=== PATIENT | female | born 1935 | race Caucasian/White ===

== ENCOUNTER 2017-04-21 10:26 | Outpatient (CLI) | payer MEDICARE, BC, SELFPAY ==
[2017-04-22 15:09] LABS: PHA INR Fingerstick 1.8 (0.9-1.1)
== END 2017-04-21 11:30 | disposition home or self-care (01) ==
LOC: ACC 10:28
PROVIDERS: Family Provider Internal Medicine; PCP Internal Medicine; Visit Provider Internal Medicine
DX: Z86.718 Personal history of other venous thrombosis and embolism (principal); Z79.01 Long term (current) use of anticoagulants; Z51.81 Encounter for therapeutic drug level monitoring
CPT/HCPCS: 85610

== ENCOUNTER → 2017-05-04 08:56 | Outpatient (CLI) | payer MEDICARE, BC, SELFPAY | PROVIDERS: Family Provider Internal Medicine; PCP Internal Medicine; Visit Provider Internal Medicine | DX: E11.9 Type 2 diabetes mellitus without complications (principal); K21.9 Gastro-esophageal reflux disease without esophagitis; Z71.3 Dietary counseling and surveillance ==

== ENCOUNTER → 2017-05-20 10:57 | Outpatient (CLI) | payer MEDICARE, BC, SELFPAY ==
[2017-05-20 15:12] LABS: PHA INR Fingerstick 1.9 (0.9-1.1)
== END | disposition home or self-care (01) ==
PROVIDERS: PCP Internal Medicine; Visit Provider Internal Medicine
DX: Z79.01 Long term (current) use of anticoagulants (principal); Z51.81 Encounter for therapeutic drug level monitoring
CPT/HCPCS: 85610

== ENCOUNTER 2017-06-09 10:23 | Outpatient (CLI) | payer MEDICARE, BC, SELFPAY ==
[2017-06-09 14:20] LABS: PHA INR Fingerstick 2.1 (0.9-1.1)
== END 2017-06-09 14:38 | disposition home or self-care (01) ==
LOC: ACC 10:24
PROVIDERS: Family Provider Internal Medicine; PCP Internal Medicine; Visit Provider Internal Medicine
DX: Z79.01 Long term (current) use of anticoagulants (principal); Z51.81 Encounter for therapeutic drug level monitoring; Z86.718 Personal history of other venous thrombosis and embolism
CPT/HCPCS: 85610; 99211; G0463

== ENCOUNTER 2017-07-07 10:22 | Outpatient (CLI) | payer MEDICARE, BC, SELFPAY ==
[2017-07-07 11:36] LABS: PHA INR Fingerstick 1.6 (0.9-1.1)
== END 2017-07-07 11:40 | disposition home or self-care (01) ==
PROVIDERS: PCP Internal Medicine; Visit Provider Internal Medicine
DX: Z79.01 Long term (current) use of anticoagulants (principal); Z51.81 Encounter for therapeutic drug level monitoring; Z86.718 Personal history of other venous thrombosis and embolism
CPT/HCPCS: 85610; 99211; G0463

== ENCOUNTER 2017-07-21 10:17 | Outpatient (CLI) | payer MEDICARE, BC, SELFPAY ==
[2017-07-21 14:39] LABS: PHA INR Fingerstick 2.2 (0.9-1.1)
== END 2017-07-21 14:57 | disposition home or self-care (01) ==
LOC: ACC 10:19
PROVIDERS: PCP Internal Medicine; Visit Provider Internal Medicine
DX: Z79.01 Long term (current) use of anticoagulants (principal); Z51.81 Encounter for therapeutic drug level monitoring; Z86.718 Personal history of other venous thrombosis and embolism
CPT/HCPCS: 85610; 99211; G0463

== ENCOUNTER 2017-08-18 10:35 | Outpatient (CLI) | payer MEDICARE, BC, SELFPAY ==
[2017-08-18 14:04] LABS: PHA INR Fingerstick 2.4 (0.9-1.1)
== END 2017-08-18 14:10 | disposition home or self-care (01) ==
LOC: ACC 10:36
PROVIDERS: PCP Internal Medicine; Visit Provider Internal Medicine
DX: Z79.01 Long term (current) use of anticoagulants (principal); Z51.81 Encounter for therapeutic drug level monitoring; Z86.718 Personal history of other venous thrombosis and embolism
CPT/HCPCS: 85610; 99211; G0463

== ENCOUNTER 2017-09-22 10:27 | Outpatient (CLI) | payer MEDICARE, BC, SELFPAY | END 2017-09-23 10:26 | disposition home or self-care (01) | PROVIDERS: PCP Internal Medicine; Visit Provider Internal Medicine | DX: Z79.01 Long term (current) use of anticoagulants (principal); Z51.81 Encounter for therapeutic drug level monitoring; Z86.718 Personal history of other venous thrombosis and embolism | CPT/HCPCS: 85610; 99211; G0463 ==

== ENCOUNTER 2017-10-06 10:36 | Outpatient (CLI) | payer MEDICARE, BC, SELFPAY ==
[2017-10-06 11:05] LABS: PHA INR Fingerstick 2.4 (0.9-1.1)
== END 2017-10-06 11:07 | disposition home or self-care (01) ==
LOC: ACC 10:37
PROVIDERS: PCP Internal Medicine; Visit Provider Internal Medicine
DX: Z79.01 Long term (current) use of anticoagulants (principal); Z86.718 Personal history of other venous thrombosis and embolism
CPT/HCPCS: 85610; 99211; G0463

== ENCOUNTER 2017-10-27 10:27 | Outpatient (CLI) | payer MEDICARE, BC, SELFPAY ==
[2017-10-27 15:35] LABS: PHA INR Fingerstick 2.7 (0.9-1.1)
== END 2017-10-27 15:57 | disposition home or self-care (01) ==
LOC: ACC 10:29
PROVIDERS: PCP Internal Medicine; Visit Provider Internal Medicine
DX: Z79.01 Long term (current) use of anticoagulants (principal); Z51.81 Encounter for therapeutic drug level monitoring; Z86.718 Personal history of other venous thrombosis and embolism
CPT/HCPCS: 85610; 99211; G0463

== ENCOUNTER 2017-12-08 10:29 | Outpatient (CLI) | payer MEDICARE, BC, SELFPAY ==
[2017-12-08 11:28] LABS: PHA INR Fingerstick 2.9 (0.9-1.1)
== END 2017-12-08 11:32 | disposition home or self-care (01) ==
LOC: ACC 10:31
PROVIDERS: PCP Internal Medicine; Visit Provider Internal Medicine
DX: Z86.718 Personal history of other venous thrombosis and embolism
CPT/HCPCS: 85610; 99211; G0463

== ENCOUNTER → 2017-12-31 14:54 | Outpatient (CLI) | payer MEDICARE, BC, SELFPAY ==
--- NOTE | 2017-12-31 | NVE_ITS ---
Venous Exam Indications: 729.5 Pain in limb. IMPRESSIONS 1. There is no evidence of significant Reflux. 2. No evidence of deep or superficial vein thrombosis involving the left lower extremity Left lower extremity venous duplex evaluation. Doppler flow study including spectral analysis, color and brooks scale imaging. Location: Vascular laboratory. Patient status: Outpatient. Tables: Venous flow and imaging: + +-------+ + + Location Overall Flow properties Comments + +-------+ + + Left common femoral Patent Normal phasicity; spontaneous; normal augmentation; compressible + +-------+ + + Left saphenofemoral Patent Compressible junction + +-------+ + + Left profunda femoral Patent Compressible + +-------+ + + Left femoral Patent Normal phasicity; spontaneous; normal augmentation; compressible + +-------+ + + Left greater saphenous Patent Normal phasicity; spontaneous; normal augmentation; compressible + +-------+ + + Left popliteal Patent Normal phasicity; spontaneous; normal augmentation; compressible + +-------+ + + Left posterior tibial Patent Compressible Difficult to image. + +-------+ + + Left peroneal Patent Compressible difficult to image. + +-------+ + + Left gastrocnemius Patent Compressible + +-------+ + + Left soleal Patent Compressible + +-------+ + + (Report amended ) Electronically signed by: Jax Bowen [id number]
== END ==
PROVIDERS: PCP Internal Medicine; Visit Provider Internal Medicine
DX: M79.605 Pain in left leg (principal); M79.89 Other specified soft tissue disorders
CPT/HCPCS: 93971

== ENCOUNTER 2018-01-19 10:27 | Outpatient (CLI) | payer MEDICARE, BC, SELFPAY ==
[2018-01-19 14:16] LABS: PHA INR Fingerstick 1.4 (0.9-1.1)
== END 2018-01-19 14:49 | disposition home or self-care (01) ==
LOC: ACC 10:28
PROVIDERS: Family Provider Internal Medicine; PCP Internal Medicine; Visit Provider Internal Medicine
DX: Z51.81 Encounter for therapeutic drug level monitoring (principal); Z79.01 Long term (current) use of anticoagulants; Z86.718 Personal history of other venous thrombosis and embolism
CPT/HCPCS: 85610; 99211; G0463

== ENCOUNTER 2018-02-02 10:32 | Outpatient (CLI) | payer MEDICARE, BC, SELFPAY ==
[2018-02-02 13:29] LABS: PHA INR Fingerstick 2.2 (0.9-1.1)
== END 2018-02-02 13:44 | disposition home or self-care (01) ==
LOC: ACC 10:33
PROVIDERS: PCP Internal Medicine; Visit Provider Internal Medicine
DX: Z51.81 Encounter for therapeutic drug level monitoring (principal); Z79.01 Long term (current) use of anticoagulants; Z86.718 Personal history of other venous thrombosis and embolism
CPT/HCPCS: 85610; 99211; G0463

== ENCOUNTER → 2018-02-09 15:48 | Outpatient (CLI) | payer MEDICARE, BC, SELFPAY ==
--- NOTE | 2018-02-09 15:53 | XR_ITS ---
XR hip RT 2-3V w/pelvis HISTORY: ITS.REASON: RIGHT HIP AND THIGH PAIN ORDERING PHYSICIAN: Per Yeager PATIENT AGE: 82 years FINDINGS: There is a bipolar prosthesis which is in good alignment. No fracture or dislocation or prosthetic loosening apparent IMPRESSION: Status post right hip replacement with no change from 08/30/2009 and no acute finding
== END ==
PROVIDERS: PCP Internal Medicine; Visit Provider Internal Medicine
DX: M25.551 Pain in right hip (principal); R10.2 Pelvic and perineal pain
CPT/HCPCS: 73502

== ENCOUNTER 2018-03-02 10:29 | Outpatient (CLI) | payer MEDICARE, BC, SELFPAY ==
[2018-03-02 11:10] LABS: PHA INR Fingerstick 2.2 (0.9-1.1)
== END 2018-03-02 12:13 | disposition home or self-care (01) ==
LOC: ACC 10:30
PROVIDERS: PCP Internal Medicine; Visit Provider Internal Medicine
DX: Z79.01 Long term (current) use of anticoagulants (principal); Z86.718 Personal history of other venous thrombosis and embolism
CPT/HCPCS: 85610; 99211; G0463

== ENCOUNTER 2018-03-23 10:00 | Outpatient (RCR) | payer MEDICARE, BC, SELFPAY ==
--- NOTE | 2018-02-21 08:56 | HMH.PTOPEV ---
PT Outpatient Evaluation Rehab PT Outpatient Evaluation Start: 02/21/18 08:47 Freq: Status: Active Protocol: Document 02/21/18 08:47 RODRICK (Rec: 02/21/18 08:56 RODRICK [id number]) Electronically Signed By Dada Story, PT 02/21/18 08:47 Outpatient Therapy Subjective History Subjective History Pt reports insidious onset R hip area pain beginning ~ 3 months ago. Pt reports difficulty ambulating up steps with posterio-lateral R hip pain, and intermittent referred pain into R low back area, and anterior R thigh. Pt reports 'I thought it was my right hip replacement, bu the Xray looked good'. Chief Complaint Pain Weakness Symptom Type Ache Sharp Dull Symptoms Relieved By Rest/Positioning Symptoms Aggravated By Physical Activity Walking Prior Functional Limitations Housework Walking Stairs Current Functional Limitations Housework Standing Walking Stairs Symptom Description Constant but Variable Level of pain today (0-10) 5 Pain scale - at its best (0-10) 3 Pain scale - at its worst (0-10) 8 Lumbopelvic Eval Posture Thoracic Spine Posture Standing Position Neutral Lumbar Spine Posture Standing Position Neutral Assistive device Assistive Devices None / NA Gait Observation General Gait Pattern Observation No Deviations/Normal Antalgic Gait Palapation tenderness right paraspinal tenderness Yes: 1/4 buttock tenderness Yes: 3/4-glut med/glut min Range of Motion Lumbar Spine Active Flexion Range of 0-40 Motion (degrees) Lumbar Spine Active Extension Range of 0-20 Motion (degrees) Left Lumbar Spine Lateral Flexion Active 0-20 Range of Motion (degrees) Right Lumbar Spine Lateral Flexion 0-20 Active Range of Motion (degrees) Lumbar Spine ROM Limitations Pain Manual Muscle Test Bilateral Knee Extension Strength Grade 5 Normal Knee Flexion Strength Grade 5 Normal Hip Flexion Strength Grade 4 Good Hip Abduction Strength Grade 4- Good- Hip Adduction Strength Grade 4- Good- Hip External Rotation Strength Grade 4- Good- Hip Internal Rotation Strength Grade 4- Good- Hi
== END 2018-03-23 10:05 | disposition home or self-care (01) ==
LOC: PT 10:00
PROVIDERS: Visit Provider Internal Medicine
DX: M54.31 Sciatica, right side (principal)
CPT/HCPCS: 97010; 97014; 97035; 97110; 97140; 97163; G0283

== ENCOUNTER 2018-04-20 10:30 | Outpatient (CLI) | payer MEDICARE, BC, SELFPAY ==
[2018-04-20 11:48] LABS: PHA INR Fingerstick 2.5 (0.9-1.1)
== END 2018-04-20 11:50 | disposition home or self-care (01) ==
LOC: ACC 10:33
PROVIDERS: PCP Internal Medicine; Visit Provider Internal Medicine
DX: Z51.81 Encounter for therapeutic drug level monitoring (principal); Z79.01 Long term (current) use of anticoagulants; Z86.718 Personal history of other venous thrombosis and embolism
CPT/HCPCS: 85610; 99211; G0463

== ENCOUNTER → 2018-05-02 10:58 | Outpatient (CLI) | payer MEDICARE, BC, SELFPAY ==
--- NOTE | 2018-05-02 11:02 | XR_ITS ---
XR facial bones min 3V Ordering Physician: Per Yeager Patient Age: 82 years: Female HISTORY: ITS.REASON: S/P FALL THIS AM, PAIN Fall this morning with bruising at the right orbit and right cheek. Facial injury. Multiple injuries.\ TECHNIQUE: 3 views facial bones.: Water's view, Jez AP, lateral view COMPARISON :None prior to today FINDINGS The nasal bone as slight irregular appearance on plain film I understand there is no current trauma to the nose and this mass may merely reflect some variations of anatomy here or old trauma. Correlation required Otherwise facial bones appear intact on the current plain films. The maxillary sinuses are well-developed and clear.The wall of the maxillary sinuses appear intact The visualized frontal ethmoid and sphenoid sinuses appear clear on the studies. \ Orbital rim and floor appear intact. Available views of mandible and maxilla unremarkable dental fillings. Mastoid air cells also noted to be well-developed and clear. IMPRESSION: Facial bones unremarkable & intact. No good evidence of acute fracture. Visualized paranasal sinuses appear well-developed and clear. Note Minor irregularity at the appearance the nasal bone on lateral view noted.-May Reflect old trauma or some variations of anatomy. Correlation required. I'm told the patient has no trauma or pain at the nasal bone.
--- NOTE | 2018-05-02 11:02 | XR_ITS ---
XR cervical spine 5V Ordering Physician: Per Yeager Patient Age: 82 years: Female HISTORY: ITS.REASON: S/P FALL THIS AM, PAIN TECHNIQUE: Five-view cervical spine series COMPARISON :None FINDINGS Cervical spondylosis with Multilevel Degenerative changes throughout the cervical spine. No acute fracture nor subluxation. . Disc space narrowing most notable at C5-C6 & C6/7. Posterior Hypertrophic osteophytic ridging noted at these levels-this spurring yields bilateral foraminal encroachment most evident at these levels. There are also degenerative facet changes bilaterally. Most prominent exuberant facet arthropathy and hypertrophy is seen to the right at C2/3. Minimal facet arthropathy is seen also throughout the right at C3/4. C4/5 C5-C6. . Mild facet arthropathy to the left at C2/3 C5 C6 C6/7 Bilateral apical pleural unremarkable scarring most evident on the right C1-C2 relationships appear normal. No malalignment is C-spine prevertebral soft tissues appear normal. Anterior marginal osteophytes most evident C5 C6 C6/7. IMPRESSION No acute fracture nor subluxation cervical spine. Multilevel degenerative changes C-spine as detailed in body of report Most prominent degenerative disc changes and spondylosis at C5-6-6 C6/7. Posterior hypertrophy/spurring at these levels yields notable bilateral foraminal encroachment. Bilateral facet hypertrophy most evident right at C2/3 .
--- NOTE | 2018-05-02 11:02 | XR_ITS ---
XR shoulder RT min 2V Ordering Physician: Per Yeager Patient Age: 82 years: Female HISTORY: ITS.REASON: S/P FALL THIS AM, PAIN right shoulder TECHNIQUE: 3 views right shoulder. AP internal and external rotation view with Y view shoulder COMPARISON :Previous right shoulder from October 2016. FINDINGS Acute fracture at distal right clavicle-less than 1 cm medial to the right AC joint . The fracture does not appear to involve the AC joint but vertically transverses the distal end of right clavicle. . Just less than 5 mm superior offset of the distal clavicle fragment, relative to the main portion of the clavicle . Glenohumeral joint is intact and unchanged. Humeral head and neck appear intact Very Faint calcification just above the base of the humeral head could reflect some minor calcific tendinopathy. AP view shows slight downward sloping of the acromion lateral to the AC joint. This anatomy. Contribute to impingement symptoms if present. . A apical pleural scarring on right is again noted. Old right third rib fracture yields mild deformity ------IMPRESSION: Acute fracture distal most right right clavicle ( just slight medial to AC joint. ) Other minor chronic observations in body of report. These appear stable since 2017 study
== END ==
PROVIDERS: PCP Internal Medicine; Visit Provider Internal Medicine
DX: M54.2 Cervicalgia (principal); M25.511 Pain in right shoulder; H57.11 Ocular pain, right eye; W19.XXXA Unspecified fall, initial encounter
CPT/HCPCS: 70150; 72050; 73030

== ENCOUNTER → 2018-05-26 12:23 | Outpatient (CLI) | payer MEDICARE, BC, SELFPAY ==
--- NOTE | 2018-05-26 12:29 | XR_ITS ---
XR shoulder RT min 2V HISTORY: ITS.REASON: follow up for clavicle fracture ORDERING PHYSICIAN: John Washington MD PATIENT AGE: 82 years Comparison: 05/02/2018 FINDINGS: A mildly displaced fractures once again noted involving the distal aspect of the clavicle. The fracture line is somewhat less distinct. The distal fracture fragment is displaced superiorly x 6 mm. Hypertrophic changes are present along the inferior aspect of the acromion with subacromial stenosis. Calcification is noted along the humeral head consistent with calcific tendinitis. IMPRESSION: Overall no significant change mildly displaced right distal clavicular fracture with subacromial stenosis and calcific tendinitis
== END ==
PROVIDERS: PCP Internal Medicine; Visit Provider Orthopaedic Surgery
DX: S42.031A Displaced fracture of lateral end of right clavicle, initial encounter for closed fracture (principal)
CPT/HCPCS: 73030

== ENCOUNTER 2018-06-01 10:24 | Outpatient (CLI) | payer MEDICARE, BC, SELFPAY ==
[2018-06-01 13:52] LABS: PHA INR Fingerstick 2.4 (0.9-1.1)
== END 2018-06-01 13:56 | disposition home or self-care (01) ==
LOC: ACC 10:25
PROVIDERS: PCP Internal Medicine; Visit Provider Internal Medicine
DX: Z51.81 Encounter for therapeutic drug level monitoring (principal); Z79.01 Long term (current) use of anticoagulants
CPT/HCPCS: 85610; 99211; G0463

== ENCOUNTER 2018-07-13 10:24 | Outpatient (CLI) | payer MEDICARE, BC, SELFPAY ==
[2018-07-13 11:30] LABS: PHA INR Fingerstick 2.5 (0.9-1.1)
== END 2018-07-13 11:39 | disposition home or self-care (01) ==
LOC: ACC 10:26
PROVIDERS: PCP Internal Medicine; Visit Provider Internal Medicine
DX: Z51.81 Encounter for therapeutic drug level monitoring (principal); Z79.01 Long term (current) use of anticoagulants
CPT/HCPCS: 85610; 99211; G0463

== ENCOUNTER → 2018-08-22 14:53 | Outpatient (CLI) | payer MEDICARE, BC, SELFPAY ==
--- NOTE | 2018-08-22 15:03 | CT_ITS ---
CT head/brain wo/w con HISTORY: Fall with headache, dizziness, vertigo, pain, acoustic neuroma ITS.REASON: FALL AT HOME, DIZZINESS,VERIGO,NECK PAIN ORDERING PHYSICIAN: Per Yeager PATIENT AGE: 82 years COMPARISON: 03/15/2010 TECHNIQUE: Axial images obtained without and with 100 mL Optiray 300 contrast. Brain and bone windows reviewed. All CT scans at the facility use one or more dose reduction, viz: automated exposure control, ma/kV adjustment per patient size (including targeted exams where dose is matched to indication, i.e. head), or iterative reconstruction technique. FINDINGS: No midline shift, mass effect, intracranial hemorrhage, hydrocephalus, or extra-axial fluid collection is evident. There is age-related atrophy with mild periventricular ischemic gliotic change. No enhancing lesions are evident. The cerebellopontine angles, cerebellum, and brainstem have an unremarkable appearance The calvarium has an unremarkable appearance. No mastoid effusion. No sinus air-fluid levels.. IMPRESSION: 1. No acute intracranial findings. 2. Age-related atrophy with chronic periventricular ischemic gliotic changes. 3. No enhancing lesions apparent.
--- NOTE | 2018-08-22 15:03 | CT_ITS ---
CT CERVICAL SPINE WITHOUT CONTRAST CT RECONSTRUCTIONS HISTORY:Neck pain following injury, posterior neck pain ORDERING PHYSICIAN: Per Yeager PATIENT AGE: 82 years COMPARISON: None Technique: All CT scans at the facility use one or more dose reduction, viz: automated exposure control, ma/kV adjustment per patient size (including targeted exams where dose is matched to indication, i.e. head), or iterative reconstruction technique PROCEDURE: Axial spiral CT scanning performed of the cervical spine beginning at the base of the skull and continuing to the upper T-spine. 3-D multiplanar reconstruction with 3-D manipulation of volumetric data set in image rendering was completed by the radiologist and/or technologist with the supervision of the radiologist on independent workstation. FINDINGS: No fracture or malalignment. Multilevel degenerative disc disease with facet and uncovertebral arthropathy. C2-C3: Mild degenerative disc disease. C3-C4: Mild degenerative disc disease. C4-C5: Mild degenerative disc disease with 4 mm anterolisthesis of C4. C5-C6: Moderate to severe degenerative disc disease with endplate osteophytes, canal stenosis, and bilateral foraminal narrowing. C6-C7: Degenerative disc disease with endplate hypertrophic change with canal stenosis and bilateral foraminal narrowing. C7-T1: Mild degenerative disc disease. Biapical scarring is noted. There is some slight asymmetry in the base of the tongue on the left with some bullous of the soft tissues at this region. This is of questionable clinical significance. Heterogeneous density is noted within the thyroid gland. IMPRESSION: 1. No acute fracture. 2. Multilevel cervical spondylosis with canal stenosis at C5-C6 and C6-C7 with bilateral foraminal narrowing 3. Slight fullness in the soft tissues on the left at the base of the tongue. Please correlate with physical exam. Somewhat similar appearance on 03/15/2010
[2018-08-22 15:49] LABS: Blood Urea Nitrogen 16 mg/dL (7-18); Creatinine,Serum 0.87 mg/dL (0.55-1.02); Estimated Glomerular Filt Rate 62 ml/min (>60); GFR (African American) 75 ML/MIN (>60)
== END ==
PROVIDERS: PCP Internal Medicine; Visit Provider Internal Medicine
DX: M54.2 Cervicalgia (principal); R55 Syncope and collapse; R42 Dizziness and giddiness
CPT/HCPCS: 36415; 70470; 72125; 82565; 84520

== ENCOUNTER 2018-08-31 11:40 | Outpatient (CLI) | payer MEDICARE, BC, SELFPAY ==
[2018-08-31 14:39] LABS: PHA INR Fingerstick 2.7 (0.9-1.1)
== END 2018-08-31 14:41 | disposition home or self-care (01) ==
LOC: ACC 11:43
PROVIDERS: PCP Internal Medicine; Visit Provider Internal Medicine
DX: Z51.81 Encounter for therapeutic drug level monitoring (principal); Z79.01 Long term (current) use of anticoagulants
CPT/HCPCS: 85610; 99211; G0463

== ENCOUNTER → 2018-09-02 14:43 | Outpatient (CLI) | payer MEDICARE, BC, SELFPAY ==
--- NOTE | 2018-09-02 14:47 | US_ITS ---
ULTRASOUND THYROID PROCEDURE: Multiple sagittal & transverse ultrasound images of the thyroid. HISTORY: Thyroid nodule seen on recent CT scan COMPARISON: CT neck 08/22/2018 ----- FINDINGS: Right and left lobe are generous in size slightly heterogeneous. With Small isolated near isoechoic nodules seen at both right and left lobe -------- RIGHT LOBE:... 4.4 cm length x 1.5 cm wide x 1.6 cm AP... Nodule A: Ill-defined solid nodule labeled A is seen at the posterior aspect midportion right lobe thyroid. This measures up to 10.8 mm AP x 6.6 mm transverse. Nodule B: Solid nodule along the posterior aspect lower right lobe. Roughly 9 mm length x 6.6 mm x 6.4 mm AP -------- LEFT LOBE::4.3 cm length x 1.7 cm wide x 1.5 cm AP Nodule A: Small 4.8 mm X 3.9 mm solid nodule at the posterior midportion left lobe ------ ISTHMUS:. Appears Normal. Normal thickness measuring 3.7 mm AP ...... IMPRESSION...... Generous size slightly heterogeneous gland bilaterally,. Small solid thyroid nodules bilaterally. Largest nodule at posterior aspect of mid right lobe thyroid right measures approximately 10 mm AP maximally Ongoing Follow-up suggested
== END ==
PROVIDERS: PCP Internal Medicine; Visit Provider Internal Medicine
DX: E04.1 Nontoxic single thyroid nodule (principal)
CPT/HCPCS: 76536

== ENCOUNTER 2018-09-22 11:00 | Outpatient (RCR) | payer MEDICARE, BC, SELFPAY | END 2018-09-22 11:05 | disposition home or self-care (01) | LOC: PT 11:00 | PROVIDERS: Visit Provider Internal Medicine | DX: R42 Dizziness and giddiness (principal) | CPT/HCPCS: 97110; 97112; 97163 ==

== ENCOUNTER 2018-10-12 10:26 | Outpatient (CLI) | payer MEDICARE, BC, SELFPAY ==
[2018-10-12 12:06] LABS: PHA INR Fingerstick 2.8 (0.9-1.1)
== END 2018-10-12 12:10 | disposition home or self-care (01) ==
LOC: ACC 10:27
PROVIDERS: PCP Internal Medicine; Visit Provider Internal Medicine
DX: Z51.81 Encounter for therapeutic drug level monitoring (principal); Z79.01 Long term (current) use of anticoagulants
CPT/HCPCS: 85610; 99211; G0463

== ENCOUNTER 2018-11-23 10:34 | Outpatient (CLI) | payer MEDICARE, BC, SELFPAY ==
[2018-11-23 13:39] LABS: PHA INR Fingerstick 2.5 (0.9-1.1)
== END 2018-11-23 13:44 | disposition home or self-care (01) ==
LOC: ACC 10:36
PROVIDERS: PCP Internal Medicine; Visit Provider Internal Medicine
DX: Z51.81 Encounter for therapeutic drug level monitoring (principal); Z79.01 Long term (current) use of anticoagulants; Z86.718 Personal history of other venous thrombosis and embolism
CPT/HCPCS: 85610; 99211; G0463

== ENCOUNTER → 2018-12-19 10:49 | Outpatient (CLI) | payer MEDICARE, BC, SELFPAY ==
--- NOTE | 2018-12-19 10:54 | FL_ITS ---
PROCEDURE: FL BARIUM SWALLOW MODIFIED CLINICAL INDICATION: DYSPHAGIA COMPARISON: No exams were available for comparison TECHNIQUE: Patient administered varying consistencies of barium contrast, while viewed in lateral position under real-time fluoroscopy with cine recording. FLUOROSCOPY TIME:2 minutes and 27 seconds The study was performed in conjunction with speech pathologist. Please see that report & recommendations. FINDINGS: Patient was given varying consistencies of barium. No vestibular penetration or tracheal aspiration. There was mild read residual. IMPRESSION: Unremarkable modified barium swallow. Please see speech pathologist report and recommendations. Dictated by: Jax Bowen MD 12/22/2018 09:35 Electronically signed by Jax Bowen MD in [place] 12/22/2018 09:35
--- NOTE | 2018-12-19 12:31 | HMH.SLMBS2 ---
Speech & Language Evaluation Speech/Language Mod Barium Swallow Start: 12/19/18 12:27 Freq: once Status: Complete Protocol: Document 12/19/18 12:27 ROXANNE (Rec: 12/19/18 12:31 ROXANNE [id number]) [facility] – [place] Recommendations Diet Dietary Recommendations Regular,Thin Liquids Treatment/Strategies Strategy/Precaution Recommend Sitting Upright (90 deg) Mod Barium Swallow Impressions Summary and Impressions Oral Phase Impression No Impairment (WFL) Oral Phase Summary No impairments noted in oral phase Pharyngeal Phase Impression Minimal Impairment Pharyngeal Phase Summary Minimal impairment noted. Ms. Barragan had vallecular residue after swallow however it was cleared with dry swallow. Speech/Language MBS Assessment/Goals/Plan Assessment Date of Evaluation: 12/19/18 Evaluation Type Initial Certification Assessment/Problems Dysphagia Does Patient Qualify for Service No Qualify/Failure Comment Ms. Barragan was given compensatory strategies to help minimize vallecular residue. Plan Pt/Guardian verbally ack understanding Yes of dx/prognosis/goals G -code Required Yes G-CODES ST Current Status [id number] ST Current Status Modifier CI-At least 1% but less than 20% impaired, limited or restricted ST Goal Status [id number] ST Goal Status Modifier CI-At least 1% but less than 20% impaired, limited or restricted Mod Barium Swallow Setup Exam Setup Radiologist Jax Bowen Level of Consciousness Awake,Alert,Appropriate, Follows Commands Position (degrees) 90 Mod Barium Swallow-Lat View Textures Lateral View Food Presentation Thin Liquid via Cup,Thin Liquid via Straw,Ground Food- Regular,Barium Tablet,Regular Food,Pudding,Mixed Oral Phase Labial Closure No Impairment (WFL) Bolus Formation Pooling L/R No Impairment (WFL) Bolus Formation under Tongue No Impairment (WFL) Bolus Formation Scattered Loss No Impairment (WFL) Mastication Rotary Chew No Impairment (WFL) Mastication Munching No Impairment (WFL) Mastication Lateralization No Impairment (WFL) A/P Lingual Propulsion Spills No Impairment (WFL) Lingual Movement No Impairment (WFL) Residue Clearing No Impairment (WFL) Aspiratio
== END ==
PROVIDERS: PCP Internal Medicine; Visit Provider Internal Medicine
DX: R13.10 Dysphagia, unspecified (principal); R05 Cough
CPT/HCPCS: 70371; 92611

== ENCOUNTER 2019-01-04 10:27 | Outpatient (CLI) | payer MEDICARE, BC, SELFPAY | END 2019-01-04 11:18 | disposition home or self-care (01) | LOC: ACC 10:28 | PROVIDERS: PCP Internal Medicine; Visit Provider Internal Medicine | DX: Z51.81 Encounter for therapeutic drug level monitoring (principal); Z79.01 Long term (current) use of anticoagulants | CPT/HCPCS: 85610; 99211; G0463 ==

== ENCOUNTER 2019-02-01 10:31 | Outpatient (CLI) | payer MEDICARE, BC, SELFPAY | END 2019-02-01 11:16 | disposition home or self-care (01) | LOC: ACC 10:32 | PROVIDERS: PCP Internal Medicine; Visit Provider Internal Medicine | DX: Z51.81 Encounter for therapeutic drug level monitoring (principal); Z79.01 Long term (current) use of anticoagulants | CPT/HCPCS: 85610; 99211; G0463 ==

== ENCOUNTER → 2019-02-15 13:47 | Outpatient (CLI) | payer MEDICARE, BC, SELFPAY ==
--- NOTE | 2019-02-15 13:50 | US_ITS ---
PROCEDURE: US THYROID CLINICAL INDICATION: goiter/cyst on thyroid Follow-up thyroid nodules COMPARISON: THY US thyroid from 09/02/2018 FINDINGS: Right lobe: 4.4 x 1.7 x 1.7 cm. There is heterogeneous echogenicity with vague nodularity. A discrete nodule is not demonstrated. This is similar when compared to the previous exam. Left lobe: 4.7 x 1.6 x 1.7 cm. Heterogeneous echogenicity. 5 mm hypoechoic nodule mid polar region on the left unchanged Isthmus: Unremarkable Additional findings: IMPRESSION: Bilateral large thyroid gland with heterogeneous echogenicity. Overall no significant change. No suspicious nodules evident Dictated by: Jax Bowen MD 02/15/2019 17:28 Electronically signed by Jax Bowen MD in [place] 02/15/2019 17:28
== END ==
PROVIDERS: PCP Internal Medicine; Visit Provider Otolaryngology
DX: E04.9 Nontoxic goiter, unspecified (principal)
CPT/HCPCS: 76536

== ENCOUNTER 2019-02-23 12:56 | Outpatient (CLI) | payer MEDICARE, BC, SELFPAY ==
[2019-02-23 13:54] LABS: PHA INR Fingerstick 2.5 (0.9-1.1)
== END 2019-02-23 13:56 | disposition home or self-care (01) ==
LOC: ACC 12:57
PROVIDERS: PCP Internal Medicine; Visit Provider Internal Medicine
DX: Z51.81 Encounter for therapeutic drug level monitoring (principal); Z79.01 Long term (current) use of anticoagulants
CPT/HCPCS: 85610; 99211; G0463

== ENCOUNTER 2019-04-06 11:02 | Outpatient (CLI) | payer MEDICARE, BC, SELFPAY ==
[2019-04-06 13:53] LABS: PHA INR Fingerstick 2.4 (0.9-1.1)
== END 2019-04-06 14:01 | disposition home or self-care (01) ==
LOC: ACC 11:03
PROVIDERS: PCP Internal Medicine; Visit Provider Internal Medicine
DX: Z51.81 Encounter for therapeutic drug level monitoring (principal); Z79.01 Long term (current) use of anticoagulants
CPT/HCPCS: 85610; 99211; G0463

== ENCOUNTER → 2019-05-15 12:54 | Outpatient (CLI) | payer MEDICARE, BC, SELFPAY ==
--- NOTE | 2019-05-15 12:54 | US_ITS ---
PROCEDURE: US THYROID CLINICAL INDICATION: goiter Follow-up thyroid nodules COMPARISON: US THYROID from 02/15/2019 FINDINGS: Right lobe: 4.3 x 1.4 x 1.5 cm with diffuse heterogeneous echogenicity. There is some nodularity of the thyroid gland but no definite discrete nodule evident in both longitudinal and transverse dimension. Not significantly changed. Left lobe: 4.3 x 1.3 x 1.6 cm with heterogeneous echogenicity. No discrete nodule evident in both planes. Isthmus: Additional findings: IMPRESSION: No change in the mildly enlarged thyroid gland with heterogeneous echogenicity without discrete nodule Dictated by: Jax Bowen MD 05/15/2019 17:21 Electronically signed by Jax Bowen MD in [place] 05/15/2019 17:21
== END ==
PROVIDERS: PCP Internal Medicine; Visit Provider Otolaryngology
DX: E04.9 Nontoxic goiter, unspecified (principal); E06.3 Autoimmune thyroiditis
CPT/HCPCS: 76536

== ENCOUNTER 2019-05-18 10:55 | Outpatient (CLI) | payer MEDICARE, BC, SELFPAY ==
[2019-05-18 15:48] LABS: PHA INR Fingerstick 2.5 (0.9-1.1)
== END 2019-05-18 15:53 | disposition home or self-care (01) ==
LOC: ACC 10:57
PROVIDERS: PCP Internal Medicine; Visit Provider Internal Medicine
DX: Z51.81 Encounter for therapeutic drug level monitoring (principal); Z79.01 Long term (current) use of anticoagulants
CPT/HCPCS: 85610; 99211; G0463

== ENCOUNTER 2019-06-29 13:53 | Outpatient (CLI) | payer MEDICARE, BC, SELFPAY ==
[2019-06-29 15:37] LABS: PHA INR Fingerstick 2.5 (0.9-1.1)
== END 2019-06-29 15:41 | disposition home or self-care (01) ==
PROVIDERS: PCP Internal Medicine; Visit Provider Internal Medicine
DX: Z51.81 Encounter for therapeutic drug level monitoring (principal); Z79.01 Long term (current) use of anticoagulants; Z86.718 Personal history of other venous thrombosis and embolism
CPT/HCPCS: 85610; 99211; G0463

== ENCOUNTER 2019-08-23 10:30 | Outpatient (CLI) | payer MEDICARE, BC, SELFPAY | END 2019-08-23 15:57 | disposition home or self-care (01) | LOC: ACC 10:32 | PROVIDERS: PCP Internal Medicine; Visit Provider Internal Medicine | DX: Z51.81 Encounter for therapeutic drug level monitoring (principal); Z79.01 Long term (current) use of anticoagulants | CPT/HCPCS: 85610; 99211; G0463 ==

== ENCOUNTER 2019-09-13 09:28 | Outpatient (CLI) | payer MEDICARE, BC, SELFPAY ==
[2019-09-13 10:32] LABS: PHA INR Fingerstick 3.3 (0.9-1.1)
== END 2019-09-13 10:34 | disposition home or self-care (01) ==
LOC: ACC 09:30
PROVIDERS: PCP Internal Medicine; Visit Provider Internal Medicine
DX: Z51.81 Encounter for therapeutic drug level monitoring (principal); Z79.01 Long term (current) use of anticoagulants
CPT/HCPCS: 85610; 99211; G0463

== ENCOUNTER 2019-10-06 10:54 | Outpatient (CLI) | payer MEDICARE, BC, SELFPAY ==
[2019-10-06 13:22] LABS: PHA INR Fingerstick 2.4 (0.9-1.1)
== END 2019-10-06 14:00 | disposition home or self-care (01) ==
LOC: ACC 10:56
PROVIDERS: PCP Internal Medicine; Visit Provider Internal Medicine
DX: Z51.81 Encounter for therapeutic drug level monitoring (principal); Z79.01 Long term (current) use of anticoagulants
CPT/HCPCS: 85610; 99211; G0463

== ENCOUNTER → 2019-10-09 09:55 | Outpatient (CLI) | payer MEDICARE, BC, SELFPAY ==
--- NOTE | 2019-10-09 09:59 | CT_ITS ---
PROCEDURE: CT HEAD/BRAIN WO/W CON CLINICAL INDICATION: HEADACHES,H/O HEAD TRAUMA COMPARISON: HEADWW CT head/brain wo/w con from 08/22/2018 TECHNIQUE: IV Contrast: 100ML OPITRAY 320 Axial images obtained. All CT scans at the facility use one or more dose reduction, viz: automated exposure control, ma/kV adjustment per patient size (including targeted exams where dose is matched to indication, i.e. head), or iterative reconstruction technique. FINDINGS: No midline shift, mass effect, intracranial hemorrhage, hydrocephalus, or extra-axial fluid collection is evident. There is generalized atrophy with hypoattenuation of the periventricular white matter consistent with microangiopathic changes. No enhancing lesions are evident. No large aneurysms the calvarium has an unremarkable appearance. Mastoids moderate mucosal thickening involves the right sphenoid sinus posteriorly in the right ethmoid sinuses anteriorly IMPRESSION: No acute intracranial findings. Sinus disease Dictated by: Jax Bowen MD 10/09/2019 13:05 Electronically signed by Jax Bowen MD in [place] 10/09/2019 13:05
== END ==
PROVIDERS: PCP Internal Medicine; Visit Provider Internal Medicine
DX: R51 Headache (principal)
CPT/HCPCS: 70470; Q9967

== ENCOUNTER 2019-11-17 10:55 | Outpatient (CLI) | payer MEDICARE, BC, SELFPAY ==
[2019-11-17 12:00] LABS: PHA INR Fingerstick 2.4 (0.9-1.1)
== END 2019-11-17 12:13 | disposition home or self-care (01) ==
LOC: ACC 10:56
PROVIDERS: PCP Internal Medicine; Visit Provider Internal Medicine
DX: Z51.81 Encounter for therapeutic drug level monitoring (principal); Z79.01 Long term (current) use of anticoagulants
CPT/HCPCS: 85610; 99211; G0463

== ENCOUNTER 2019-12-27 14:09 | Outpatient (CLI) | payer MEDICARE, BC, SELFPAY ==
[2019-12-27 14:46] LABS: PHA INR Fingerstick 3.6 (0.9-1.1)
== END 2019-12-27 14:51 | disposition home or self-care (01) ==
LOC: ACC 14:12
PROVIDERS: PCP Internal Medicine; Visit Provider Internal Medicine
DX: Z51.81 Encounter for therapeutic drug level monitoring (principal); Z79.01 Long term (current) use of anticoagulants
CPT/HCPCS: 85610; 99211; G0463

== ENCOUNTER 2020-01-10 11:01 | Outpatient (CLI) | payer MEDICARE, BC, SELFPAY ==
[2020-01-10 13:47] LABS: PHA INR Fingerstick 2.7 (0.9-1.1)
== END 2020-01-10 13:49 | disposition home or self-care (01) ==
LOC: ACC 11:03
PROVIDERS: PCP Internal Medicine; Visit Provider Internal Medicine
DX: Z51.81 Encounter for therapeutic drug level monitoring (principal); Z79.01 Long term (current) use of anticoagulants
CPT/HCPCS: 85610; 99211; G0463

== ENCOUNTER 2020-02-14 11:11 | Outpatient (CLI) | payer MEDICARE, SELFPAY ==
[2020-02-14 11:44] LABS: PHA INR Fingerstick 2.2 (0.9-1.1)
== END 2020-02-14 11:45 | disposition home or self-care (01) ==
LOC: ACC 11:13
PROVIDERS: PCP Internal Medicine; Visit Provider Internal Medicine
DX: Z51.81 Encounter for therapeutic drug level monitoring (principal); Z79.01 Long term (current) use of anticoagulants
CPT/HCPCS: 85610; 99211; G0463

== ENCOUNTER 2020-03-27 10:16 | Outpatient (CLI) | payer MEDICARE, SELFPAY ==
[2020-03-27 15:28] LABS: PHA INR Fingerstick 2.4 (0.9-1.1)
== END 2020-03-27 15:30 | disposition home or self-care (01) ==
LOC: ACC 10:17
PROVIDERS: PCP Internal Medicine; Visit Provider Internal Medicine
DX: Z51.81 Encounter for therapeutic drug level monitoring (principal); Z79.01 Long term (current) use of anticoagulants
CPT/HCPCS: 85610; 99211; G0463

== ENCOUNTER 2020-05-08 14:02 | Outpatient (CLI) | payer MEDICARE, SELFPAY | END 2020-05-08 16:26 | disposition home or self-care (01) | LOC: ACC 14:04 | PROVIDERS: PCP Internal Medicine; Visit Provider Internal Medicine | DX: Z51.81 Encounter for therapeutic drug level monitoring (principal); Z79.01 Long term (current) use of anticoagulants | CPT/HCPCS: 85610; 99211; G0463 ==

== ENCOUNTER 2020-06-12 10:45 | Outpatient (CLI) | payer MEDICARE, SELFPAY ==
--- NOTE | 2020-06-12 10:55 | XR_ITS ---
PROCEDURE: XR CHEST 2V CLINICAL HISTORY: CHEST PAIN COMPARISON: CR CXR CHEST(2 VIEWS-NOT PORTABLE) from 04/27/2012 CT CTAC CTA-CHEST from 04/30/2012 FINDINGS: The cardiomediastinal silhouette and pulmonary vascularity are within normal limits. There chronic changes present with biapical pleural parenchymal thickening and mild thickening of the right major fissure laterally. Mild degenerative changes thoracic spine with mild kyphosis. No lobar consolidation or collapse. No acute bony abnormalities. IMPRESSION: Chronic changes, no acute finding Dictated by: Jax Bowen MD 06/12/2020 11:15 Jax Bowen MD in [place] 06/12/2020 11:15
--- NOTE | 2020-06-12 11:18 | ECG_ITS ---
APPROVED REPORT Exam: Resting ECG HR:85 bpm ECG Measurements Heart Rate 85 AXES MS 152 P 67 QRSd 98 QRS -47 QT 372 T 44 QTc 442 Conclusion Normal sinus rhythm Left anterior fascicular block Moderate voltage criteria for LVH, may be normal variant Abnormal ECG Electronically signed by : Per Yeager, 06/14/2020 09:01:45
[2020-06-12 14:34] LABS: PHA INR Fingerstick 3.1 (0.9-1.1)
== END 2020-06-12 14:36 | disposition home or self-care (01) ==
LOC: ACC 10:49
PROVIDERS: PCP Internal Medicine; Visit Provider Internal Medicine
DX: R07.9 Chest pain, unspecified (principal); Z79.01 Long term (current) use of anticoagulants; Z51.81 Encounter for therapeutic drug level monitoring
CPT/HCPCS: 71046; 85610; 93005; 99211; G0463

== ENCOUNTER 2020-07-04 12:58 | Outpatient (CLI) | payer MEDICARE, SELFPAY ==
[2020-07-04 15:39] LABS: PHA INR Fingerstick 2.1 (0.9-1.1)
== END 2020-07-04 15:42 | disposition home or self-care (01) ==
LOC: ACC 12:59
PROVIDERS: PCP Internal Medicine; Visit Provider Internal Medicine
DX: Z79.01 Long term (current) use of anticoagulants (principal); Z51.81 Encounter for therapeutic drug level monitoring; Z86.718 Personal history of other venous thrombosis and embolism
CPT/HCPCS: 85610; 99211; G0463

== ENCOUNTER 2020-08-14 12:59 | Outpatient (CLI) | payer MEDICARE, SELFPAY ==
[2020-08-14 16:04] LABS: PHA INR Fingerstick 2.4 (0.9-1.1)
== END 2020-08-14 16:06 | disposition home or self-care (01) ==
PROVIDERS: PCP Internal Medicine; Visit Provider Internal Medicine
DX: Z86.718 Personal history of other venous thrombosis and embolism (principal); Z79.01 Long term (current) use of anticoagulants
CPT/HCPCS: 85610; 99211; G0463

== ENCOUNTER → 2020-09-02 15:22 | Outpatient (CLI) | payer MEDICARE, SELFPAY ==
--- NOTE | 2020-09-02 | US_ITS ---
APPROVED REPORT Exam Type: Ankle to Brachial Index Boot Turner: osito/spencer Indications Claudication: Bilaterally Bruit carotid steosis pre-CEA, Discolored great toes Risk Factors History of PAD: Hypertension Hyperlipidemia Diabetes Pressures/Indices Right Indices Left Indices Brachial 146.00 mmHg Brachial 150.00 mmHg Low Thigh 183.00 mmHg 1.22 Low Thigh 0.00 mmHg 0.00 Calf 156.00 mmHg 1.04 Calf 126.00 mmHg 0.84 Ankle(PT) 140.00 mmHg 0.93 Ankle(PT) 150.00 mmHg 1.00 Ankle(DP) 138.00 mmHg 0.92 Ankle(DP) 139.00 mmHg 0.93 Digit 83.00 mmHg 0.55 Digit 75.00 mmHg 0.50 Findings RT JARRELL=0.93 LT JARRELL=1.0 RT TPI=0.55 LT JARRELL=0.50 Right first digit pressure below normal limits. Left first digit pressure below normal limits. Conclusion RT JARRELL=0.93 LT JARRELL=1.0 RT TPI=0.55 LT JARRELL=0.50 Electronically signed by : Jax Bowen MD 09/02/2020 15:58:30
== END ==
PROVIDERS: PCP Internal Medicine; Visit Provider Internal Medicine
DX: R23.0 Cyanosis (principal); I70.213 Atherosclerosis of native arteries of extremities with intermittent claudication, bilateral legs
CPT/HCPCS: 93923

== ENCOUNTER 2020-09-11 13:48 | Outpatient (CLI) | payer MEDICARE, SELFPAY ==
[2020-09-11 14:33] LABS: PHA INR Fingerstick 1.5 (0.9-1.1)
== END 2020-09-11 14:36 | disposition home or self-care (01) ==
LOC: ACC 13:49
PROVIDERS: PCP Internal Medicine; Visit Provider Internal Medicine
DX: Z51.81 Encounter for therapeutic drug level monitoring (principal); Z79.01 Long term (current) use of anticoagulants; I48.91 Unspecified atrial fibrillation
CPT/HCPCS: 85610; 99211; G0463

== ENCOUNTER 2020-09-25 12:57 | Outpatient (CLI) | payer MEDICARE, SELFPAY | END 2020-09-25 15:09 | disposition home or self-care (01) | LOC: ACC 12:58 | PROVIDERS: PCP Internal Medicine; Visit Provider Internal Medicine | DX: Z51.81 Encounter for therapeutic drug level monitoring (principal); Z79.01 Long term (current) use of anticoagulants | CPT/HCPCS: 85610; 99211; G0463 ==

== ENCOUNTER 2020-10-16 12:55 | Outpatient (CLI) | payer MEDICARE, SELFPAY ==
[2020-10-16 15:48] LABS: PHA INR Fingerstick 1.7 (0.9-1.1)
== END 2020-10-16 16:02 | disposition home or self-care (01) ==
LOC: ACC 12:57
PROVIDERS: PCP Internal Medicine; Visit Provider Internal Medicine
DX: Z51.81 Encounter for therapeutic drug level monitoring (principal); Z79.01 Long term (current) use of anticoagulants; I48.91 Unspecified atrial fibrillation
CPT/HCPCS: 85610; 99211; G0463

== ENCOUNTER 2020-11-01 12:50 | Outpatient (CLI) | payer MEDICARE, SELFPAY ==
[2020-11-01 15:56] LABS: PHA INR Fingerstick 2.7 (0.9-1.1)
== END 2020-11-01 16:26 | disposition home or self-care (01) ==
LOC: ACC 12:52
PROVIDERS: PCP Internal Medicine; Visit Provider Internal Medicine
DX: Z51.81 Encounter for therapeutic drug level monitoring (principal); Z79.01 Long term (current) use of anticoagulants; I48.91 Unspecified atrial fibrillation
CPT/HCPCS: 85610; 99211; G0463

== ENCOUNTER 2020-11-07 15:00 | Outpatient (RCR) | payer MEDICARE, SELFPAY | END 2020-11-07 15:05 | disposition home or self-care (01) | LOC: PT 15:00 | PROVIDERS: PCP Internal Medicine; Visit Provider Internal Medicine | DX: R26.89 Other abnormalities of gait and mobility (principal) | CPT/HCPCS: 97110; 97112; 97163; 97530 ==

== ENCOUNTER 2020-11-15 12:51 | Outpatient (CLI) | payer MEDICARE, SELFPAY ==
[2020-11-15 15:31] LABS: PHA INR Fingerstick 2.6 (0.9-1.1)
== END 2020-11-15 15:35 | disposition home or self-care (01) ==
LOC: ACC 12:53
PROVIDERS: PCP Internal Medicine; Visit Provider Internal Medicine
DX: Z51.81 Encounter for therapeutic drug level monitoring (principal); Z79.01 Long term (current) use of anticoagulants; I48.91 Unspecified atrial fibrillation
CPT/HCPCS: 85610; 99211; G0463

== ENCOUNTER → 2020-11-20 14:29 | Outpatient (CLI) | payer MEDICARE, SELFPAY ==
--- NOTE | 2020-11-20 14:34 | XR_ITS ---
PROCEDURE: XR KNEE LT 3V CLINICAL INDICATION: LT KNEE PAIN, S/P FALL 2 MONTHS AGO COMPARISON: CR [id number] KNEE-3 VIEWS-RT from 11/27/2013 FINDINGS: No fracture or dislocation. No lytic or blastic change. There is normal mineralization. There are [id number] osteoarthritic changes of the medial compartment of the left knee with decrease in joint space, osteosclerosis, and osteophyte formation. There are mild osteoarthritic changes of the patellofemoral joint. IMPRESSION: Osteoarthritis, no acute finding Dictated by: Jax Bowen MD 11/20/2020 14:45 Jax Bowen MD in [place] 11/20/2020 14:45
== END ==
PROVIDERS: PCP Internal Medicine; Visit Provider Internal Medicine
DX: M25.562 Pain in left knee (principal)
CPT/HCPCS: 73562

== ENCOUNTER 2020-12-27 08:48 | Outpatient (CLI) | payer MEDICARE, SELFPAY ==
--- NOTE | 2020-12-27 08:51 | CT_ITS ---
PROCEDURE: CT ABDOMEN PELVIS WO CON CLINICAL INDICATION: ABD PAIN COMPARISON: No exams were available for comparison TECHNIQUE: Axial images obtained with sagittal and coronal reformats. All CT scans at the facility use one or more dose reduction, viz: automated exposure control, ma/kV adjustment per patient size (including targeted exams where dose is matched to indication, i.e. head), or iterative reconstruction technique. FINDINGS: LOWER THORAX: A 6 mm nodule is present in the right lung base. This is nonspecific. Aortic valve calcifications are noted. ABDOMEN & PELVIS: The liver, spleen, adrenal glands, pancreas and pancreas has an unremarkable appearance. There are 2 right renal cysts largest of which measures 4.6 cm. There is a 1.2 cm left renal cyst. There is a 2 mm stone in the upper pole of the right kidney and a 2 mm stone in the lower pole of the right kidney. No ureteral calculi. No hydronephrosis. No intestinal obstruction or free air. No evidence of appendicitis. There is a mild amount of retained colonic feces. There is colonic diverticulosis without evidence of diverticulitis. There has been a right hip hemiarthroplasty placed with good alignment. Degenerative changes are present in the lumbar spine. IMPRESSION: 1. Nonobstructing right nephrolithiasis. 2. Colonic diverticulosis without evidence of diverticulitis. 3. 6 mm noncalcified nodule right lower lobe. Suggest 6-12 month follow-up to confirm stability Dictated by: Jax Bowen MD 12/27/2020 14:26 Jax Bowen MD in [place] 12/27/2020 14:26
[2020-12-27 16:34] LABS: PHA INR Fingerstick 2.3 (0.9-1.1)
== END 2020-12-27 16:36 | disposition home or self-care (01) ==
PROVIDERS: PCP Internal Medicine; Visit Provider Internal Medicine
DX: R10.84 Generalized abdominal pain (principal); Z51.81 Encounter for therapeutic drug level monitoring; Z79.01 Long term (current) use of anticoagulants
CPT/HCPCS: 74176; 85610; 99211; G0463

== ENCOUNTER 2021-02-04 14:02 | Outpatient (CLI) | payer MEDICARE, SELFPAY ==
[2021-02-04 15:44] LABS: PHA INR Fingerstick 2.6 (0.9-1.1)
== END 2021-02-04 15:59 | disposition home or self-care (01) ==
LOC: ACC 14:04
PROVIDERS: PCP Internal Medicine; Visit Provider Internal Medicine
DX: Z51.81 Encounter for therapeutic drug level monitoring (principal); Z79.01 Long term (current) use of anticoagulants
CPT/HCPCS: 85610; 99211; G0463

== ENCOUNTER 2021-03-19 13:58 | Outpatient (CLI) | payer MEDICARE, SELFPAY ==
[2021-03-19 14:52] LABS: PHA INR Fingerstick 2.2 (0.9-1.1)
== END 2021-03-19 14:58 | disposition home or self-care (01) ==
LOC: ACC 13:59
PROVIDERS: PCP Internal Medicine; Visit Provider Internal Medicine
DX: Z51.81 Encounter for therapeutic drug level monitoring (principal); Z79.01 Long term (current) use of anticoagulants; I48.91 Unspecified atrial fibrillation
CPT/HCPCS: 85610; 99211; G0463

== ENCOUNTER → 2021-04-15 15:58 | Outpatient (CLI) | payer MEDICARE, SELFPAY | PROVIDERS: PCP Internal Medicine; Visit Provider Nurse Practitioner | DX: Z20.822 Contact with and (suspected) exposure to COVID-19 (principal) | CPT/HCPCS: C9803; U0003; U0005 ==

== ENCOUNTER 2021-04-29 14:07 | Outpatient (CLI) | payer MEDICARE, SELFPAY ==
[2021-04-29 14:27] LABS: PHA INR Fingerstick 2.2 (0.9-1.1)
== END 2021-04-29 14:29 | disposition home or self-care (01) ==
LOC: ACC 14:09
PROVIDERS: PCP Internal Medicine; Visit Provider Internal Medicine
DX: Z51.81 Encounter for therapeutic drug level monitoring (principal); Z79.01 Long term (current) use of anticoagulants; I48.91 Unspecified atrial fibrillation
CPT/HCPCS: 85610; 99211; G0463

== ENCOUNTER 2021-06-12 13:18 | Outpatient (CLI) | payer MEDICARE, SELFPAY | END 2021-06-12 14:41 | disposition home or self-care (01) | LOC: ACC 13:19 | PROVIDERS: PCP Internal Medicine; Visit Provider Internal Medicine | DX: Z51.81 Encounter for therapeutic drug level monitoring (principal); Z79.01 Long term (current) use of anticoagulants; I48.91 Unspecified atrial fibrillation | CPT/HCPCS: 85610; 99211; G0463 ==

== ENCOUNTER → 2021-07-02 13:32 | Outpatient (CLI) | payer MEDICARE, SELFPAY ==
[2021-07-02 15:40] LABS: Alanine Aminotransferase 25 U/L (12-78); Albumin Level 3.9 g/dl (3.5-5.0); Albumin/Globulin Ratio 1.6 (1.1-1.8); Alkaline Phosphatase 96 U/L (38-126); Anion Gap 13.6 mEq/L (5-15); Aspartate Amino Transferase 29 U/L (14-36); Bilirubin,Total 0.5 mg/dl (0.2-1.3); Blood Urea Nitrogen 20 mg/dl (7-17); Calcium 8.9 mg/dl (8.4-10.2); Carbon Dioxide 28 mmol/L (22.0-30.0); Chloride 98 mmol/L (98-107); Chol/HDL Ratio 4.8 (1-3.5); Cholesterol 167 mg/dl (140-200); Estimated Glomerular Filt Rate 68 ml/min (>60); GFR (African American) 82 ML/MIN (>60); Globulin 2.5 g/dL (1.3-3.2); Glucose 105 mg/dl (74-100); HDL Cholesterol 35 mg/dl (40-60); Potassium 4.6 mmoL/L (3.5-5.1); Sodium 135 mmol/L (136-145); Total Protein,Serum 6.4 g/dl (6.3-8.2); Triglycerides 210 mg/dl (30-150); VLDL Cholesterol 42 mg/dL (0-40)
[2021-07-02 15:51] LABS: Direct LDL Cholesterol 87.95 mg/dL (100-129)
[2021-07-02 16:22] LABS: Creatinine,Urine Random 125 mg/dL (Not Estab.)
[2021-07-02 16:26] LABS: Microalbumin/Creatinine Ratio 18.2
[2021-07-02 17:47] LABS: Hemoglobin A1C 6.6 % (4.0-6.0)
== END ==
PROVIDERS: Visit Provider Internal Medicine
DX: E11.59 Type 2 diabetes mellitus with other circulatory complications (principal); I73.9 Peripheral vascular disease, unspecified; I10 Essential (primary) hypertension; E78.5 Hyperlipidemia, unspecified; M17.0 Bilateral primary osteoarthritis of knee; Z79.84 Long term (current) use of oral hypoglycemic drugs
CPT/HCPCS: 80053; 80061; 82043; 82570; 83036

== ENCOUNTER 2021-07-10 15:23 | Emergency (ER) | payer MEDICARE, SELFPAY ==
[2021-07-10 15:02] VITALS: BP 125/87; PULSE 88; RESP 18; TEMP 36.5; O2SAT 99; BMI 34.2
--- NOTE | 2021-07-10 15:17 | XR_ITS ---
FINAL REPORT CLINICAL HISTORY: injury, fall c/o lt knee pain COMPARISON: 11/20/2020 FINDINGS: LEFT KNEE Three views demonstrate no acute fracture or dislocation. There are mild and moderate degenerative changes. No joint effusion is identified. There is infrapatellar soft tissue swelling. IMPRESSION: Soft tissue swelling without acute bony abnormality. Reviewed, Interpreted and Dictated by Lucho Moreno III, MD Transcribed by Swetha Lowe Authenticated by Lucho Moreno III, MD on 07/10/2021 04:41:52 PM [facility]
--- NOTE | 2021-07-10 15:17 | CT_ITS ---
FINAL REPORT CLINICAL HISTORY: fall, laceration too forehead COMPARISON: 08/22/2018 FINDINGS: Axial CT images of the cervical spine were obtained without contrast. Sagittal and coronal reformatted images were also obtained. This study was performed with techniques to keep radiation doses as low as reasonably achievable (ALARA). Individualized dose reduction techniques using automated exposure control or adjustment of mA and/or kV according to the patient's size were employed. There is no evidence of fracture or dislocation. Mild and moderate degenerative changes are present. There is mild anterolisthesis of C4 on 5. There is multilevel neural foraminal narrowing. There is mild central canal stenosis at C5-6 and C6-7. There is soft tissue in the right sphenoid sinus. Limited images of the upper thorax are unremarkable. IMPRESSION: No acute bony abnormality. Multilevel degenerative disc disease with multilevel neural foraminal narrowing. Reviewed, Interpreted and Dictated by Lucho Moreno III, MD Transcribed by Swetha Lowe Authenticated by Lucho Moreno III, MD on 07/10/2021 04:41:55 PM [facility]
--- NOTE | 2021-07-10 15:17 | CT_ITS ---
FINAL REPORT CLINICAL HISTORY: fall, trauma, laceration to forehead COMPARISON: 10/09/2019 FINDINGS: Axial images of the head were obtained without contrast. Coronal reformatted images were also obtained. This study was performed with techniques to keep radiation doses as low as reasonably achievable (ALARA). Individualized dose reduction techniques using automated exposure control or adjustment of mA and/or kV according to the patient's size were employed. There is generalized age-appropriate atrophy. Periventricular low-attenuation areas are seen consistent with mild chronic ischemic changes. There is no evidence of intracranial hemorrhage or mass. There is no evidence of acute infarct. There is no evidence of shift of the midline structures. There is a right frontal scalp hematoma. IMPRESSION: Atrophy and mild periventricular chronic ischemic changes. No acute intracranial abnormality identified. Reviewed, Interpreted and Dictated by Lucho Moreno III, MD Transcribed by Swetha Lowe Authenticated by Lucho Moreno III, MD on 07/10/2021 04:41:54 PM [facility]
--- NOTE | 2021-07-10 15:25 | PC.NURSE ---
ED MD at to suture patient
--- NOTE | 2021-07-10 15:30 | HMH.EDFALL ---
ED Disposition Clinical Impression: Forehead laceration Qualifiers: Encounter type: initial encounter Qualified Code(s): S01.81XA - Laceration without foreign body of other part of head, initial encounter Eyelid laceration, right Qualifiers: Encounter type: initial encounter Qualified Code(s): S01.111A - Laceration without foreign body of right eyelid and periocular area, initial encounter Nasal fracture Qualifiers: Encounter type: initial encounter Fracture type: closed Qualified Code(s): S02.2XXA - Fracture of nasal bones, initial encounter for closed fracture Disposition: Home, Self-Care Condition on Discharge: Good Instructions: DI for Laceration Repair -- Simple Prescriptions: Mupirocin [Bactroban 2% Ointment 22gm tube] 1 applicatio TP TID #22 gm Transmission Status: Pending to [facility] clindamycin HCL [Cleocin HCl] 300 mg PO Q8 #21 cap Transmission Status: Pending to [facility] Referrals: Provider,Referral, [Referring] - - Critical Care Critical Care Time: No Attestation: On 07/10/21, the high probability of a clinically significant, sudden or life threatening deterioration of the following system(s) required my full and direct attention, intervention and personal management. The time I documented below is in addition to time spent performing reported procedures but includes the following listed in this critical care notation. Medical Decision Making - Medical Records Medical records reviewed: Yes: I reviewed the patient's medical records. - [place] Inquiry Pt receiving controlled substance: No Vital Signs: 07/10/21 15:02 07/10/21 15:56 07/10/21 16:01 Temperature 97.7 F Temperature Source Oral Pulse Rate 82 81 Pulse Rate [Left Radial] 88 Respiratory Rate 18 Blood Pressure 176/75 H 165/66 H Blood Pressure [Right Arm] 125/87 Blood Pressure Mean 104 96 Blood Pressure Mean [Right Arm] 99 Blood Pressure Source [Right Arm] Automatic Cuff Blood Pressure Position [Right Arm] Sitting 02 Sat by Pulse Oximetry 99 96 96 Oxygen Delivery Method Room Air 07/10/21 16:31 Temperature Temperature Source Pulse Rate 79 Pulse Rate [Left Radial] Respiratory Rate Blood Pressure 158/76 H Blood Pressure [Right Arm] Blood Pressure Mean 103 Blood Pressure Mean [Right Arm] Blood Pressure Source [Right Arm] Blood Pressure Position [Right Arm] 02 Sat by Pulse Oximetry 98 Oxygen Delivery Method - Lab Data Lab Results 07/10/21 16:10: WBC 8.6, RBC 4.05 L, Hgb 13.0, Hct 40.1, MCV 99.2 H, MCH 32.2 H, MCHC 32.5, RDW 13.9, Plt Count 319, MPV 7.6, Neut % (Auto) 78.4, Lymph % (Auto) 12.6, Swain % (Auto) 6.2, Eos % (Auto) 2.0, Baso % (Auto) 0.7, Neut # (Auto) 6.8, Lymph # (Auto) 1.1, Swain # (Auto) 0.5, Eos # (Auto) 0.2, Baso # (Auto) 0.1 07/10/21 16:10: Sodium 133 L, Potassium 4.0, Chloride 99, Carbon Dioxide 27, Anion Gap 11.0, BUN 19 H, Creatinine 0.70, Estimated Creat Clear 61, Estimated GFR 79, Est GFR ( Amer) 96, Glucose 202 H, Calcium 8.5, Total Bilirubin 0.5, AST 38 H, ALT 30, Alkaline Phosphatase 88, Total Protein 6.4, Albumin 3.8, Globulin 2.6, Albumin/Globulin Ratio 1.5 07/10/21 16:10: PT 21.7 H, INR 2.02 H Result diagrams: 07/10/21 16:10 07/10/21 16:10 - Reevaluation(s) Time: 17:02 (reeval, bleeding controlled, appears well, able to stand and walk with minimal assist, son to ED to care for pt agreed to plan to rx and f/u pcp) Medical Decision Narrative: forehead lac repair by me , irrig w/sailine, no fb seen, lido w/epi, 4-0 nylon running x6 rt upper eyelid lac repair, irrig, approximated with steristrip/dermabond Fall HPI - General Chief Complaint: Fall Stated Complaint: Fall/Head laceration Time Seen by Provider: 07/10/21 15:39 Mode of Arrival: EMS Limitations: No Limitations Description of Symptoms (Recalled from ER Triage Doc. by RN): c/o head laceration and scratch on nose and left knee pain, pt states she
--- NOTE | 2021-07-10 15:41 | CT_ITS ---
FINAL REPORT TECHNIQUE: Axial CT images of the face were obtained without contrast. Coronal reformatted images were also obtained. This study was performed with techniques to keep radiation doses as low as reasonably achievable, (ALARA). Individualized dose reduction techniques using automated exposure control or adjustment of mA and/or kV according to the patient''s size were employed. CLINICAL HISTORY: trauma, fall laceration rt side of forehead FINDINGS: There are bilateral nasal bone fractures. The orbits are intact.The globes are intact.No sinus fluid levels are identified. There is mucosal thickening in the right sphenoid sinus. IMPRESSION: Bilateral nasal bone fractures. Reviewed, Interpreted and Dictated by Lucho Moreno III, MD Transcribed by Swetha Lowe Authenticated by Lucho Moreno III, MD on 07/10/2021 04:41:57 PM [facility]
--- NOTE | 2021-07-10 15:55 | PC.NURSE ---
Patient back from CT with weed eradicator by tru
[2021-07-10 15:56] VITALS: BP 176/75; PULSE 82; O2SAT 96
[2021-07-10 16:01] VITALS: BP 165/66; PULSE 81; O2SAT 96
[2021-07-10 16:24] LABS: Basophils # 0.1 K/mm3 (0-0.2); Basophils % 0.7 % (0.1-2.0); Eosinophils # 0.2 K/mm3 (0.0-0.4); Hematocrit 40.1 % (37.0-47.0); Lymphocytes # 1.1 K/mm3 (0.7-4.5); Lymphocytes % 12.6 % (10-50); Mean Corpuscular HGB Conc 32.5 g/dL (31.8-35.4); Mean Corpuscular Hemoglobin 32.2 pg (27.0-31.2); Mean Corpuscular Volume 99.2 fl (81-99); Mean Platelet Volume 7.6 fl (7.4-10.4); Monocytes # 0.5 K/mm3 (0.1-1.0); Monocytes % 6.2 % (1.7-9.3); Neutrophils # 6.8 K/mm3 (1.8-7.8); Neutrophils % 78.4 % (37.0-80.0); Platelet Count 319 K/mm3 (142-424); Red Blood Count 4.05 M/mm3 (4.20-5.40); Red Cell Distribution Width 13.9 % (11.5-17.5); White Blood Count 8.6 K/mm3 (4.8-10.8)
[2021-07-10 16:31] VITALS: BP 158/76; PULSE 79; O2SAT 98
[2021-07-10 16:37] LABS: Alanine Aminotransferase 30 U/L (12-78); Albumin Level 3.8 g/dl (3.5-5.0); Albumin/Globulin Ratio 1.5 (1.1-1.8); Alkaline Phosphatase 88 U/L (38-126); Aspartate Amino Transferase 38 U/L (14-36); Bilirubin,Total 0.5 mg/dl (0.2-1.3); Blood Urea Nitrogen 19 mg/dl (7-17); Calcium 8.5 mg/dl (8.4-10.2); Carbon Dioxide 27 mmol/L (22.0-30.0); Chloride 99 mmol/L (98-107); Creatinine Clearance Estimated 61 mL/min (50-200); Estimated Glomerular Filt Rate 79 ml/min (>60); GFR (African American) 96 ML/MIN (>60); Globulin 2.6 g/dL (1.3-3.2); Glucose 202 mg/dl (74-100); INR 2.02 (0.9-1.1); Prothrombin Time 21.7 seconds (10.1-12.5); Sodium 133 mmol/L (136-145); Total Protein,Serum 6.4 g/dl (6.3-8.2)
--- NOTE | 2021-07-10 16:38 | PC.NURSE ---
RN and student at cleaning blood off of patient from her fall
[2021-07-10 17:40] VITALS: BP 158/76; PULSE 79; RESP 18; TEMP 36.5; O2SAT 98
== END 2021-07-10 17:42 | disposition home or self-care (01) ==
PROVIDERS: Emergency Provider Emergency Medicine; PCP Internal Medicine
DX: S01.81XA Laceration without foreign body of other part of head, initial encounter (principal); S01.111A Laceration without foreign body of right eyelid and periocular area, initial encounter; S02.2XXA Fracture of nasal bones, initial encounter for closed fracture; Z79.01 Long term (current) use of anticoagulants; W10.9XXA Fall (on) (from) unspecified stairs and steps, initial encounter; Y92.019 Unspecified place in single-family (private) house as the place of occurrence of the external cause; E78.5 Hyperlipidemia, unspecified; E11.9 Type 2 diabetes mellitus without complications; K21.9 Gastro-esophageal reflux disease without esophagitis; F41.9 Anxiety disorder, unspecified
CPT/HCPCS: 70450; 70486; 72125; 73562; 80053; 85025; 85610; 99284

== ENCOUNTER 2021-07-23 13:36 | Outpatient (CLI) | payer MEDICARE, SELFPAY ==
[2021-07-23 14:01] LABS: PHA INR Fingerstick 1.9 (0.9-1.1)
== END 2021-07-23 14:05 | disposition home or self-care (01) ==
LOC: ACC 13:37
PROVIDERS: PCP Internal Medicine; Visit Provider Internal Medicine
DX: Z51.81 Encounter for therapeutic drug level monitoring (principal); Z79.01 Long term (current) use of anticoagulants; I48.91 Unspecified atrial fibrillation
CPT/HCPCS: 85610; 99211; G0463

== ENCOUNTER 2021-08-06 15:01 | Outpatient (CLI) | payer MEDICARE, SELFPAY ==
[2021-08-06 16:33] LABS: PHA INR Fingerstick 2.2 (0.9-1.1)
== END 2021-08-06 16:34 | disposition home or self-care (01) ==
LOC: ACC 15:01
PROVIDERS: PCP Internal Medicine; Visit Provider Internal Medicine
DX: Z51.81 Encounter for therapeutic drug level monitoring (principal); Z79.01 Long term (current) use of anticoagulants; I48.91 Unspecified atrial fibrillation
CPT/HCPCS: 85610; 99211; G0463

== ENCOUNTER → 2021-08-13 16:56 | Outpatient (CLI) | payer MEDICARE, SELFPAY ==
[2021-08-13 17:25] LABS: Basophils # 0.1 K/mm3 (0-0.2); Eosinophils # 0.3 K/mm3 (0.0-0.4); Eosinophils % 3.8 % (0.1-12.0); Hematocrit 40.9 % (37.0-47.0); Hemoglobin 13.6 g/dL (12.2-16.2); Lymphocytes # 1.5 K/mm3 (0.7-4.5); Lymphocytes % 20.1 % (10-50); Mean Corpuscular HGB Conc 33.2 g/dL (31.8-35.4); Mean Corpuscular Hemoglobin 32.8 pg (27.0-31.2); Mean Corpuscular Volume 98.8 fl (81-99); Mean Platelet Volume 8.2 fl (7.4-10.4); Monocytes # 0.6 K/mm3 (0.1-1.0); Monocytes % 7.4 % (1.7-9.3); Neutrophils % 67.6 % (37.0-80.0); Platelet Count 405 K/mm3 (142-424); Red Blood Count 4.14 M/mm3 (4.20-5.40); Red Cell Distribution Width 13.9 % (11.5-17.5); White Blood Count 7.4 K/mm3 (4.8-10.8)
[2021-08-13 19:13] LABS: Erythrocyte Sedimentation Rate 18 mm/hr (0-30)
== END ==
PROVIDERS: Visit Provider Internal Medicine
DX: G44.1 Vascular headache, not elsewhere classified (principal); I10 Essential (primary) hypertension
CPT/HCPCS: 85025; 85651

== ENCOUNTER 2021-09-18 15:26 | Outpatient (CLI) | payer MEDICARE, SELFPAY | END 2021-09-18 15:58 | disposition home or self-care (01) | LOC: ACC 15:27 | PROVIDERS: PCP Internal Medicine; Visit Provider Internal Medicine | DX: Z51.81 Encounter for therapeutic drug level monitoring (principal); Z79.01 Long term (current) use of anticoagulants; I48.91 Unspecified atrial fibrillation | CPT/HCPCS: 85610; 99211; G0463 ==

== ENCOUNTER 2021-10-10 14:58 | Outpatient (CLI) | payer MEDICARE, SELFPAY ==
[2021-10-10 15:37] LABS: PHA INR Fingerstick 2.6 (0.9-1.1)
== END 2021-10-10 15:38 | disposition home or self-care (01) ==
LOC: ACC 14:58
PROVIDERS: PCP Internal Medicine; Visit Provider Internal Medicine
DX: Z51.81 Encounter for therapeutic drug level monitoring (principal); Z79.01 Long term (current) use of anticoagulants; I48.91 Unspecified atrial fibrillation
CPT/HCPCS: 85610; 99211; G0463

== ENCOUNTER 2021-11-07 14:51 | Outpatient (CLI) | payer MEDICARE, SELFPAY ==
[2021-11-07 16:14] LABS: PHA INR Fingerstick 2.5 (0.9-1.1)
== END 2021-11-07 16:21 | disposition home or self-care (01) ==
LOC: ACC 14:52
PROVIDERS: PCP Internal Medicine; Visit Provider Internal Medicine
DX: Z51.81 Encounter for therapeutic drug level monitoring (principal); Z79.01 Long term (current) use of anticoagulants; I48.91 Unspecified atrial fibrillation
CPT/HCPCS: 85610; 99211; G0463

== ENCOUNTER 2021-12-19 14:58 | Outpatient (CLI) | payer MEDICARE, SELFPAY ==
[2021-12-19 15:33] LABS: PHA INR Fingerstick 2.2 (0.9-1.1)
== END 2021-12-19 15:48 ==
LOC: ACC 14:59
PROVIDERS: PCP Internal Medicine; Visit Provider Internal Medicine
DX: Z51.81 Encounter for therapeutic drug level monitoring (principal); Z79.01 Long term (current) use of anticoagulants; I48.91 Unspecified atrial fibrillation
CPT/HCPCS: 85610; 99211; G0463

== ENCOUNTER 2022-02-04 15:03 | Outpatient (CLI) | payer MEDICARE, SELFPAY ==
[2022-02-04 15:39] LABS: PHA INR Fingerstick 2.2 (0.9-1.1)
== END 2022-02-04 15:41 ==
LOC: ACC 15:05
PROVIDERS: PCP Internal Medicine; Visit Provider Internal Medicine
DX: Z79.01 Long term (current) use of anticoagulants (principal)
CPT/HCPCS: 85610; 99211; G0463

== ENCOUNTER → 2022-02-04 18:15 | Outpatient (CLI) | payer MEDICARE, SELFPAY ==
[2022-02-04 18:33] LABS: Basophils # 0.1 K/mm3 (0-0.2); Basophils % 0.8 % (0.1-2.0); Eosinophils # 0.3 K/mm3 (0.0-0.4); Eosinophils % 3.2 % (0.1-12.0); Hematocrit 41.5 % (37.0-47.0); Hemoglobin 13.4 g/dL (12.2-16.2); Lymphocytes # 1.5 K/mm3 (0.7-4.5); Lymphocytes % 17.9 % (10-50); Mean Corpuscular HGB Conc 32.4 g/dL (31.8-35.4); Mean Corpuscular Hemoglobin 31.9 pg (27.0-31.2); Mean Corpuscular Volume 98.5 fl (81-99); Mean Platelet Volume 7.4 fl (7.4-10.4); Monocytes # 0.6 K/mm3 (0.1-1.0); Monocytes % 7.1 % (1.7-9.3); Neutrophils # 6.1 K/mm3 (1.8-7.8); Neutrophils % 71.1 % (37.0-80.0); Platelet Count 410 K/mm3 (142-424); Red Blood Count 4.21 M/mm3 (4.20-5.40); Red Cell Distribution Width 13.7 % (11.5-17.5); White Blood Count 8.6 K/mm3 (4.8-10.8)
[2022-02-04 19:02] LABS: Erythrocyte Sedimentation Rate 17 mm/hr (0-30)
[2022-02-04 19:22] LABS: Alanine Aminotransferase 24 U/L (12-78); Albumin Level 3.7 g/dl (3.5-5.0); Albumin/Globulin Ratio 1.5 (1.1-1.8); Alkaline Phosphatase 116 U/L (38-126); Anion Gap 16.2 mEq/L (5-15); Aspartate Amino Transferase 31 U/L (14-36); Bilirubin,Total 0.4 mg/dl (0.2-1.3); Blood Urea Nitrogen 26 mg/dl (7-17); Calcium 8.8 mg/dl (8.4-10.2); Carbon Dioxide 28 mmol/L (22.0-30.0); Chloride 95 mmol/L (98-107); Chol/HDL Ratio 4.4 (1-3.5); Cholesterol 154 mg/dl (140-200); Estimated Glomerular Filt Rate 59 ml/min (>60); GFR (African American) 72 ML/MIN (>60); Globulin 2.5 g/dL (1.3-3.2); Glucose 109 mg/dl (74-100); HDL Cholesterol 35 mg/dl (40-60); Potassium 4.2 mmoL/L (3.5-5.1); Sodium 135 mmol/L (136-145); Total Protein,Serum 6.2 g/dl (6.3-8.2); Triglycerides 207 mg/dl (30-150); VLDL Cholesterol 41 mg/dL (0-40)
[2022-02-04 20:02] LABS: Hemoglobin A1C 6.2 % (4.0-6.0)
[2022-02-04 21:06] LABS: Direct LDL Cholesterol 91.21 mg/dL (100-129)
== END ==
PROVIDERS: PCP Internal Medicine; Visit Provider Internal Medicine
DX: E11.59 Type 2 diabetes mellitus with other circulatory complications (principal); I10 Essential (primary) hypertension; M17.0 Bilateral primary osteoarthritis of knee; I73.9 Peripheral vascular disease, unspecified; E78.5 Hyperlipidemia, unspecified; G44.1 Vascular headache, not elsewhere classified; Z79.84 Long term (current) use of oral hypoglycemic drugs
CPT/HCPCS: 80053; 80061; 83036; 85025; 85610; 85651; 99211; G0463

== ENCOUNTER 2022-03-20 13:58 | Outpatient (CLI) | payer MEDICARE, SELFPAY ==
[2022-03-20 14:30] LABS: PHA INR Fingerstick 2.2 (0.9-1.1)
== END 2022-03-20 14:35 ==
LOC: ACC 13:59
PROVIDERS: PCP Internal Medicine; Visit Provider Internal Medicine
DX: Z51.81 Encounter for therapeutic drug level monitoring (principal); Z79.01 Long term (current) use of anticoagulants; I48.91 Unspecified atrial fibrillation
CPT/HCPCS: 85610; 99211; G0463

== ENCOUNTER 2022-05-01 13:53 | Outpatient (CLI) | payer MEDICARE, SELFPAY ==
[2022-05-01 15:16] LABS: PHA INR Fingerstick 1.9 (0.9-1.1)
== END 2022-05-01 16:04 ==
LOC: ACC 13:55
PROVIDERS: PCP Internal Medicine; Visit Provider Internal Medicine
DX: Z51.81 Encounter for therapeutic drug level monitoring (principal); Z79.01 Long term (current) use of anticoagulants; I48.91 Unspecified atrial fibrillation
CPT/HCPCS: 85610; 99211; G0463

== ENCOUNTER 2022-06-17 14:03 | Outpatient (CLI) | payer MEDICARE, SELFPAY ==
[2022-06-17 14:21] LABS: PHA INR Fingerstick 2.1 (0.9-1.1)
== END 2022-06-17 14:23 ==
LOC: ACC 14:05
PROVIDERS: PCP Internal Medicine; Visit Provider Internal Medicine
DX: Z51.81 Encounter for therapeutic drug level monitoring (principal); Z79.01 Long term (current) use of anticoagulants; I48.91 Unspecified atrial fibrillation
CPT/HCPCS: 85610; 99211; G0463

== ENCOUNTER 2022-07-29 13:59 | Outpatient (CLI) | payer MEDICARE, SELFPAY ==
[2022-07-29 15:06] LABS: PHA INR Fingerstick 1.9 (0.9-1.1)
== END 2022-07-29 15:12 ==
LOC: ACC 13:59
PROVIDERS: PCP Internal Medicine; Visit Provider Internal Medicine
DX: Z51.81 Encounter for therapeutic drug level monitoring (principal); Z79.01 Long term (current) use of anticoagulants; I48.91 Unspecified atrial fibrillation
CPT/HCPCS: 85610; 99211; G0463

== ENCOUNTER 2022-08-26 14:04 | Outpatient (CLI) | payer MEDICARE, SELFPAY | END 2022-08-26 14:33 | LOC: ACC 14:06 | PROVIDERS: PCP Internal Medicine; Visit Provider Internal Medicine | DX: Z51.81 Encounter for therapeutic drug level monitoring (principal); Z79.01 Long term (current) use of anticoagulants; I48.91 Unspecified atrial fibrillation | CPT/HCPCS: 85610; 99211; G0463 ==

== ENCOUNTER → 2022-09-02 12:09 | Outpatient (CLI) | payer MEDICARE, SELFPAY ==
[2022-09-02 13:41] LABS: Alanine Aminotransferase 26 U/L (12-78); Albumin/Globulin Ratio 1.7 (1.1-1.8); Alkaline Phosphatase 101 U/L (38-126); Anion Gap 16.9 mEq/L (5-15); Aspartate Amino Transferase 33 U/L (14-36); Bilirubin,Total 0.6 mg/dl (0.2-1.3); Blood Urea Nitrogen 20 mg/dl (7-17); Calcium 9.1 mg/dl (8.4-10.2); Carbon Dioxide 29 mmol/L (22.0-30.0); Chloride 95 mmol/L (98-107); Cholesterol 149 mg/dl (140-200); Estimated Glomerular Filt Rate 68 ml/min (>60); GFR (African American) 82 ML/MIN (>60); Globulin 2.4 g/dL (1.3-3.2); Glucose 103 mg/dl (74-100); HDL Cholesterol 37 mg/dl (40-60); Potassium 4.9 mmoL/L (3.5-5.1); Sodium 136 mmol/L (136-145); Total Protein,Serum 6.4 g/dl (6.3-8.2); Triglycerides 229 mg/dl (30-150); VLDL Cholesterol 46 mg/dL (0-40)
[2022-09-02 13:53] LABS: Direct LDL Cholesterol 79.94 mg/dL (100-129)
[2022-09-02 20:07] LABS: Hemoglobin A1C 6.3 % (4.0-6.0)
== END ==
PROVIDERS: PCP Internal Medicine; Visit Provider Internal Medicine
DX: E11.59 Type 2 diabetes mellitus with other circulatory complications (principal); Z79.899 Other long term (current) drug therapy
CPT/HCPCS: 80053; 80061; 83036

== ENCOUNTER → 2022-09-04 16:59 | Outpatient (CLI) | payer MEDICARE, SELFPAY ==
[2022-09-04 17:40] LABS: Creatinine,Urine Random 101 mg/dL (Not Estab.)
[2022-09-04 17:42] LABS: Microalbumin/Creatinine Ratio 6.5
== END ==
PROVIDERS: PCP Internal Medicine; Visit Provider Internal Medicine
DX: E11.59 Type 2 diabetes mellitus with other circulatory complications (principal); I10 Essential (primary) hypertension; E78.5 Hyperlipidemia, unspecified; I73.9 Peripheral vascular disease, unspecified; K21.9 Gastro-esophageal reflux disease without esophagitis; Z86.711 Personal history of pulmonary embolism; Z79.84 Long term (current) use of oral hypoglycemic drugs; Z51.81 Encounter for therapeutic drug level monitoring; Z79.01 Long term (current) use of anticoagulants
CPT/HCPCS: 82043; 82570

== ENCOUNTER → 2022-09-22 13:40 | Outpatient (CLI) | payer MEDICARE, SELFPAY ==
--- NOTE | 2022-09-22 13:46 | XR_ITS ---
FINAL REPORT CLINICAL HISTORY: fell on left side, bilat knee pain FINDINGS: 3 views of the left knee were obtained. There is no acute fracture or dislocation. There are moderate and severe degenerative changes. There is narrowing of the medial compartment joint space. There is mild vascular calcification. IMPRESSION: No acute bony abnormality. Reviewed, Interpreted and Dictated by Lucho Moreno III, MD Transcribed by Stan Rosales Authenticated and [facility]
--- NOTE | 2022-09-22 13:46 | XR_ITS ---
FINAL REPORT CLINICAL HISTORY: fell on left side, bilat knee pain FINDINGS: 3 views of the right knee were obtained. There is no acute fracture or dislocation. There are mild degenerative changes. There is mild vascular calcification. IMPRESSION: No acute bony abnormality. Reviewed, Interpreted and Dictated by Lucho Moreno III, MD Transcribed by Stan Rosales Authenticated and [facility]
== END ==
PROVIDERS: PCP Internal Medicine; Visit Provider Orthopaedic Surgery
DX: M25.562 Pain in left knee (principal); M25.561 Pain in right knee
CPT/HCPCS: 73562

== ENCOUNTER 2022-09-23 13:56 | Outpatient (CLI) | payer MEDICARE, SELFPAY ==
[2022-09-23 14:17] LABS: PHA INR Fingerstick 2.6 (0.9-1.1)
== END 2022-09-23 14:19 ==
LOC: ACC 13:57
PROVIDERS: PCP Internal Medicine; Visit Provider Internal Medicine
DX: Z51.81 Encounter for therapeutic drug level monitoring (principal); Z79.01 Long term (current) use of anticoagulants; I48.91 Unspecified atrial fibrillation
CPT/HCPCS: 85610; 99211; G0463

== ENCOUNTER 2022-10-16 14:12 | Emergency (ER) | payer MEDICARE, SELFPAY ==
[2022-10-16] VITALS (8 sets, daily range): BP systolic 98–180; BP diastolic 71–109; PULSE 63–86; RESP 16–20; TEMP 36.6–37; O2SAT 95–97; BMI 36.8
--- NOTE | 2022-10-16 14:12 | ECG_ITS ---
APPROVED REPORT Exam: Resting ECG HR:92 bpm ECG Measurements Heart Rate 92 AXES TX 151 P 64 QRSd 105 QRS -48 QT 328 T 70 QTc 377 Conclusion SINUS RHYTHM PATTERN CONSISTENT WITH PULMONARY DISEASE INCOMPLETE RIGHT BUNDLE BRANCH BLOCK [90+ ms QRS DURATION, TERMINAL R IN V1/V2, 40+ ms S IN I/aVL/V4/V5/V6] LEFT ANTERIOR FASCICULAR BLOCK [QRS AXIS <= -45, QR IN I, RS IN II] VOLTAGE CRITERIA FOR LVH [MEETS CRITERIA IN ONE OF: R(aVL), S(V1), R(V5), R(V5/V6)+S(V1)] ABNORMAL ECG UNCONFIRMED REPORT Electronically signed by : Sidney Juan MD 10/17/2022 09:54:41
[2022-10-16 14:31] LABS: Basophils # 0.1 K/mm3 (0-0.2); Basophils % 0.7 % (0.1-2.0); Eosinophils # 0.3 K/mm3 (0.0-0.4); Eosinophils % 4.8 % (0.1-12.0); Hematocrit 45.7 % (37.0-47.0); Hemoglobin 14.1 g/dL (12.2-16.2); Lymphocytes # 1.6 K/mm3 (0.7-4.5); Lymphocytes % 23.1 % (10-50); Mean Corpuscular Hemoglobin 30.7 pg (27.0-31.2); Mean Corpuscular Volume 99.3 fl (81-99); Mean Platelet Volume 6.9 fl (7.4-10.4); Monocytes # 0.5 K/mm3 (0.1-1.0); Monocytes % 7.8 % (1.7-9.3); Neutrophils # 4.5 K/mm3 (1.8-7.8); Neutrophils % 63.7 % (37.0-80.0); Platelet Count 381 K/mm3 (142-424); Red Cell Distribution Width 13.4 % (11.5-17.5)
[2022-10-16 14:38] LABS: Alanine Aminotransferase 34 U/L (12-78); Albumin Level 4.3 g/dl (3.5-5.0); Albumin/Globulin Ratio 1.5 (1.1-1.8); Alkaline Phosphatase 100 U/L (38-126); Anion Gap 14.5 mEq/L (5-15); Aspartate Amino Transferase 42 U/L (14-36); Bilirubin,Total 0.5 mg/dl (0.2-1.3); Blood Urea Nitrogen 16 mg/dl (7-17); Calcium 8.9 mg/dl (8.4-10.2); Carbon Dioxide 27 mmol/L (22.0-30.0); Chloride 102 mmol/L (98-107); Creatinine Clearance Estimated 63 mL/min (50-200); Estimated Glomerular Filt Rate 59 ml/min (>60); GFR (African American) 71 ML/MIN (>60); Globulin 2.9 g/dL (1.3-3.2); Glucose 128 mg/dl (74-100); Potassium 4.5 mmoL/L (3.5-5.1); Sodium 139 mmol/L (136-145); Total Protein,Serum 7.2 g/dl (6.3-8.2)
[2022-10-16 14:52] LABS: Troponin I < 0.01 ng/ml (0.00-0.034)
--- NOTE | 2022-10-16 15:36 | XR_ITS ---
FINAL REPORT CLINICAL HISTORY: Neck pain COMPARISON: 05/02/2018 FINDINGS: CERVICAL SPINE 3 views were obtained. There is no acute fracture. There are multilevel moderate degenerative changes. Mild anterolisthesis at C4-5 is stable. There is no soft tissue abnormality. IMPRESSION: Degenerative changes with no acute bony abnormality. Reviewed, Interpreted and Dictated by Lucho Moreno III, MD Transcribed by Kristy Menchaca Authenticated and [facility]
--- NOTE | 2022-10-16 15:36 | XR_ITS ---
FINAL REPORT CLINICAL HISTORY: Right shoulder pain FINDINGS: RIGHT SHOULDER Two views demonstrate no acute fracture or dislocation. There are mild degenerative changes of the acromioclavicular and glenohumeral joints. Calcifications adjacent to the humeral head are consistent with calcific tendinitis. IMPRESSION: Degenerative change with no acute bony abnormality. Findings consistent with calcific tendinitis. Reviewed, Interpreted and Dictated by Lucho Moreno III, MD Transcribed by Kristy Menchaca Authenticated and [facility]
--- NOTE | 2022-10-16 15:37 | HMH.EDBACK ---
Discharge Plan Disposition Patient Disposition: Home, Self-Care Chief Complaint: Back Pain/Injury Prescriptions Prescriptions: No Action atorvastatin 20 mg tablet 20 mg PO DAILY 30 Days Qty: 30 metformin 500 mg tablet 500 mg PO BID 30 Days Qty: 60 citalopram 20 mg tablet 20 mg PO DAILY 30 Days Qty: 30 bisoprolol-hydrochlorothiazide 5-6.25 mg tablet 1 tab PO DAILY 30 Days Qty: 30 aspirin [Adult Low Dose Aspirin] 81 mg tablet,delayed release (DR/EC) 81 mg PO DAILY losartan 25 mg tablet 25 mg PO DAILY furosemide 20 mg tablet 20 mg PO DAILY medroxyprogesterone 5 mg tablet 5 mg PO DAILY warfarin 2.5 mg tablet See Rx Instructions .ROUTE .COMPLEX Rx Instructions: 5 mg orally Referrals Follow up/Referrals: Per Yeager MD [Primary Care Provider] - See instructions Clinical Impressions Clinical Impression: Cervical disc disorder with radiculopathy Instructions Patient Instructions: DI for Low Back Pain Discharge ED Provider: Dwayne Johnson Back Pain HPI General Chief Complaint: Back Pain/Injury Stated Complaint: Upper back pain Time Seen by Provider: 10/16/22 15:30 Mode of Arrival: Ambulatory Source of Information: Patient Limitations: No Limitations Description of Symptoms (Recalled from ER Triage Doc. by RN): 87 F presents with a stiff neck for 2 months; however, yesterday the pain changed to her right shoulder, upper back, and into the right side of her neck. Patient denies chest pain, SOA, or other ACS symptoms. Patient reports there is no pain at this time, but she became concerned when the pain changed. History of Present Illness HPI Narrative: 87-year-old white female presents with right neck shoulder pain going through to her back. The patient's had neck pain more on the left for a couple of months it is now moved over to the right. She has no trauma no lifting etc. she does take Coumadin for pulmonary emboli in the past. She is allergic to penicillin Keflex and etodolac. Related Data Home Medications Medication Instructions Recorded Confirmed aspirin 81 mg tablet,delayed 81 mg PO DAILY Heart Disease 12/27/17 10/16/22 release (Adult Low Dose Aspirin) atorvastatin 20 mg tablet 20 mg PO DAILY High Cholesterol 30 12/27/17 10/16/22 days #30 tabs bisoprolol 5 1 tab PO DAILY Heart Rhythm 30 12/27/17 10/16/22 mg-hydrochlorothiazide 6.25 mg days #30 tabs tablet citalopram 20 mg tablet 20 mg PO DAILY Mood 30 days #30 12/27/17 10/16/22 tabs metformin 500 mg tablet 500 mg PO BID Diabetes 30 days #60 12/27/17 10/16/22 tabs furosemide 20 mg tablet 20 mg PO DAILY Swelling 10/16/22 10/16/22 losartan 25 mg tablet 25 mg PO DAILY High Blood Pressure 10/16/22 10/16/22 medroxyprogesterone 5 mg tablet 5 mg PO DAILY Supplement 10/16/22 10/16/22 warfarin 2.5 mg tablet See Rx Instructions .Route 10/16/22 10/16/22 .COMPLEX Blood Thinner Allergies Allergy/AdvReac Type Severity Reaction Status Date / Time etodolac Allergy Intermediate 'KIDNEY Verified 09/22/22 14:13 PROBLEMS' Penicillins Allergy Intermediate I-RASH Verified 09/22/22 14:13 cephalexin [From Keflex] Allergy Unknown UNKNOWN Verified 09/22/22 14:13 HMG-CoA Reductase Inhibitors Allergy Intermediate ELEVATED Uncoded 09/22/22 14:13 LIVER ENZYMES PFSH PFS Disclaimer: The information contained in this section may have been updated after the patient was seen, as this information can be updated by other users. Social History Smoking Status: Never smoker alcohol intake: never substance use type: denies use current occupational status: retired Travel in the last 8 weeks: None ROS Obtained: Yes Systems reviewed as appropriate & no additional complaints except as documented Physical Exam General General appearance: alert and in no apparent distress Respiratory Respiratory exam: Present no
--- NOTE | 2022-10-16 15:39 | PC.NURSE ---
Spoke with Ena in lab regarding PT/PTT add on
--- NOTE | 2022-10-16 15:43 | PC.NURSE ---
pt ambulatory to restroom with assistance from cane, no complications. Family at BS. Call gaffney within reach. She reports no other needs at this time
[2022-10-16 15:49] LABS: Prothrombin Time 22.7 seconds (10.1-12.5)
--- NOTE | 2022-10-16 15:57 | PC.NURSE ---
pt return from xray
== END 2022-10-16 18:10 | disposition home or self-care (01) ==
PROVIDERS: Emergency Provider Emergency Medicine; PCP Internal Medicine
DX: M54.6 Pain in thoracic spine; M54.2 Cervicalgia; M25.511 Pain in right shoulder; M54.12 Radiculopathy, cervical region; R00.1 Bradycardia, unspecified
CPT/HCPCS: 72040; 73030; 80053; 84484; 85025; 85610; 93005; 96374; 99284; 99285; J0131

== ENCOUNTER 2022-11-04 14:06 | Outpatient (CLI) | payer MEDICARE, SELFPAY ==
[2022-11-04 14:47] LABS: PHA INR Fingerstick 2.6 (0.9-1.1)
== END 2022-11-04 14:52 ==
LOC: ACC 14:07
PROVIDERS: PCP Internal Medicine; Visit Provider Internal Medicine
DX: Z79.01 Long term (current) use of anticoagulants (principal); Z51.81 Encounter for therapeutic drug level monitoring; I48.91 Unspecified atrial fibrillation
CPT/HCPCS: 85610; 99211; G0463

== ENCOUNTER 2022-12-16 14:08 | Outpatient (CLI) | payer MEDICARE, SELFPAY ==
[2022-12-16 15:45] LABS: PHA INR Fingerstick 1.9 (0.9-1.1)
== END 2022-12-16 15:47 ==
LOC: ACC 14:09
PROVIDERS: PCP Internal Medicine; Visit Provider Internal Medicine
DX: Z79.01 Long term (current) use of anticoagulants (principal); Z51.81 Encounter for therapeutic drug level monitoring; I48.91 Unspecified atrial fibrillation
CPT/HCPCS: 85610; 99211; G0463

== ENCOUNTER 2023-01-27 14:54 | Outpatient (CLI) | payer MEDICARE, SELFPAY ==
[2023-01-27 15:40] LABS: PHA INR Fingerstick 2.2 (0.9-1.1)
== END 2023-01-27 15:45 ==
LOC: ACC 14:55
PROVIDERS: PCP Internal Medicine; Visit Provider Internal Medicine
DX: Z79.01 Long term (current) use of anticoagulants (principal); I48.91 Unspecified atrial fibrillation; Z51.81 Encounter for therapeutic drug level monitoring
CPT/HCPCS: 85610; 99211; G0463

== ENCOUNTER 2023-03-02 13:54 | Emergency (ER) | payer MEDICARE, SELFPAY ==
[2023-03-02 13:55] VITALS: BP 161/79; PULSE 80; RESP 18; TEMP 36.9; O2SAT 97; BMI 32.5
--- NOTE | 2023-03-02 14:07 | ECG_ITS ---
APPROVED REPORT Exam: Resting ECG HR:72 bpm ECG Measurements Heart Rate 72 AXES WI 152 P 51 QRSd 118 QRS -56 QT 390 T 65 QTc 414 Conclusion SINUS RHYTHM PATTERN CONSISTENT WITH PULMONARY DISEASE INCOMPLETE RIGHT BUNDLE BRANCH BLOCK [90+ ms QRS DURATION, TERMINAL R IN V1/V2, 40+ ms S IN I/aVL/V4/V5/V6] LEFT ANTERIOR FASCICULAR BLOCK [QRS AXIS <= -45, QR IN I, RS IN II] MODERATE VOLTAGE CRITERIA FOR LVH, CONSIDER NORMAL VARIANT [MEETS CRITERIA IN ONE OF: R(aVL), S(V1), R(V5), R(V5/V6)+S(V1)] ABNORMAL ECG UNCONFIRMED REPORT Electronically signed by : Sidney Juan MD 03/03/2023 17:12:17
--- NOTE | 2023-03-02 14:15 | PC.NURSE ---
DR CARDOZA AT BEDSIDE
--- NOTE | 2023-03-02 14:30 | CT_ITS ---
FINAL REPORT TECHNIQUE: Thin section axial CT with IV contrast supplemented with multiplanar reconstruction under CT angiogram protocol. 3-D reconstructions were performed. This study was performed with techniques to keep radiation doses as low as reasonably achievable (ALARA). Individualized dose reduction techniques using automated exposure control or adjustment of mA and/or kV according to the patient''s size were employed. CLINICAL HISTORY: confusion yesterday, fall vs syncope, on coumadin FINDINGS: The distal vertebral, basilar and distal internal carotid arteries have an unremarkable appearance. No aneurysm is seen. Major intracranial vessels are patent without significant stenosis. IMPRESSION: No evidence of significant stenosis. Reviewed, Interpreted and Dictated by Lucho Moreno III, MD Transcribed by Swetha Lowe Authenticated and . [facility]
--- NOTE | 2023-03-02 14:30 | CT_ITS ---
FINAL REPORT TECHNIQUE: Thin section axial CT with IV contrast supplemented with multiplanar reconstruction under CT angiogram protocol. This study was performed with techniques to keep radiation doses as low as reasonably achievable (ALARA). Individualized dose reduction techniques using automated exposure control or adjustment of mA and/or kV according to the patient''s size were employed. NASCET criteria was utilized during interpretation. CLINICAL HISTORY: confusion yesterday, fall vs syncope, on coumadin FINDINGS: Aortic arch: Arch shows no significant narrowing. Great vessel origins are widely patent. Right carotid: There is calcified plaque at the carotid bulb. There is approximately 30% stenosis at the carotid bulb. The more distal ICA appears normal. Left carotid: No significant stenosis is seen of the cervical common or internal carotid artery. Vertebral: Left vertebral artery is dominant. No significant stenosis is present. IMPRESSION: 30% stenosis at the right carotid bulb. Reviewed, Interpreted and Dictated by Lucho Moreno III, MD Transcribed by Swetha Lowe Authenticated and [facility]
--- NOTE | 2023-03-02 14:30 | CT_ITS ---
FINAL REPORT CLINICAL HISTORY: confusion yesterday, fall vs syncope, on coumadin COMPARISON: 06/2021 FINDINGS: Axial images of the head were obtained without contrast. Coronal reformatted images were also obtained. This study was performed with techniques to keep radiation doses as low as reasonably achievable (ALARA). Individualized dose reduction techniques using automated exposure control or adjustment of mA and/or kV according to the patient's size were employed. There is generalized age-appropriate atrophy. Periventricular low-attenuation areas are seen consistent with mild chronic ischemic changes. There is no evidence of intracranial hemorrhage or mass. There is no evidence of acute infarct. There is no evidence of shift of the midline structures. No skull abnormality is seen on the bone window images. IMPRESSION: Atrophy and mild periventricular chronic ischemic changes. No acute intracranial abnormality identified. Reviewed, Interpreted and Dictated by Lucho Moreno III, MD Transcribed by Stan Rosales Authenticated and [facility]
[2023-03-02 14:31] VITALS: BP 147/75; PULSE 72; O2SAT 97
--- NOTE | 2023-03-02 14:31 | XR_ITS ---
FINAL REPORT CLINICAL HISTORY: AMS COMPARISON: 06/12/2020 FINDINGS: A single portable view of the chest was obtained. The heart size and pulmonary vascularity are within normal limits. The mediastinum is within normal limits. There is bilateral scarring in the lung apices, with pleural thickening as well. No acute pulmonary abnormality is identified. The bony thorax is intact. IMPRESSION: No active cardiopulmonary disease. Reviewed, Interpreted and Dictated by Lucho Moreno III, MD Transcribed by Marian Almazan Authenticated and [facility]
--- NOTE | 2023-03-02 14:31 | CT_ITS ---
FINAL REPORT CLINICAL HISTORY: fall COMPARISON: 07/10/2021 FINDINGS: Axial CT images of the cervical spine were obtained without contrast. Sagittal and coronal reformatted images were also obtained. This study was performed with techniques to keep radiation doses as low as reasonably achievable (ALARA). Individualized dose reduction techniques using automated exposure control or adjustment of mA and/or kV according to the patient's size were employed. There is no evidence of fracture or dislocation. There is mild anterolisthesis of C4 and C5 as well as multilevel neuroforaminal narrowing most prominent at the C5-6 level. Moderate degenerative changes present in the cervical spine. There is mild canal stenosis at the C5-6 and C6-7 levels. No paraspinous soft tissue abnormality is seen. Scarring is present in the lung apices. When compared to the prior CT of the cervical spine from June 2021 no significant changes identified. IMPRESSION: No fracture or acute bony abnormality identified. Moderate degenerative change as described, with bilateral neural foraminal narrowing most prominent at the C5-6 level and mild canal stenosis at the C5-6 and C6-7 levels. No significant changes identified since the prior MRI of 2021. Reviewed, Interpreted and Dictated by Lucho Moreno III, MD Transcribed by Marian Almazan Authenticated and [facility]
--- NOTE | 2023-03-02 14:35 | HMH.EDGENADL ---
Discharge Plan Disposition Patient Disposition: Home, Self-Care Prescriptions Prescriptions: No Action atorvastatin 20 mg tablet 20 mg PO DAILY 30 Days Qty: 30 metformin 500 mg tablet 500 mg PO BID 30 Days Qty: 60 citalopram 20 mg tablet 20 mg PO DAILY 30 Days Qty: 30 bisoprolol-hydrochlorothiazide 5-6.25 mg tablet 1 tab PO DAILY 30 Days Qty: 30 aspirin [Adult Low Dose Aspirin] 81 mg tablet,delayed release (DR/EC) 81 mg PO DAILY losartan 25 mg tablet 25 mg PO DAILY furosemide 20 mg tablet 20 mg PO DAILY medroxyprogesterone 5 mg tablet 5 mg PO DAILY warfarin 2.5 mg tablet See Rx Instructions .ROUTE .COMPLEX Rx Instructions: 5 mg orally Referrals Follow up/Referrals: Per Yeager MD [Primary Care Provider] - See instructions Activity Restrictions/Add. Instructions Additional Instructions/Restrictions: Call your family doctor to establish care for this visit to the emergency department and schedule follow-up within 48 hours to ensure improvement. If you have any worsening of your condition or any other concerning signs or symptoms, return to the emergency department or your primary care doctor for further evaluation. Clinical Impressions Clinical Impression: Syncope Discharge ED Provider: Gerard Escobar General Adult HPI <Janessa Mahoney DO - Last Filed: 03/03/23 07:34> General Chief complaint: Fall Stated complaint: AO 4:30 03/01 HIT HEAD Time Seen by Provider: 03/02/23 14:05 Mode of Arrival: Ambulatory Source of Information: Patient Limitations: No Limitations Description of Symptoms (Recalled from ER Triage Doc. by RN): PT REPORTS FALL AT HOME YESTERDAY ABOUT 1630, LANDED ON LEFT SIDE. C/O LEFT ELBOW PAIN. PT REPORTS UNKNOWN LOC History of Present Illness HPI narrative: This patient is an 87-year-old female with a history of PE on Coumadin, diabetes on metformin, hyperlipidemia, hypertension, and carotid stenosis presenting to the emergency department for evaluation. Patient states that yesterday, she was driving home from visiting with her daughters, and she felt like she was going in and out with fuzzy and disordered thought process. She notes that she kept having to tell herself to focus because she felt like she could not pay attention going home. Once she got home, she notes that she went to turn the light on around 4:30 PM, and she somehow got turned around and ended up blacking out and falling. She is not sure what exactly happened. She did hit her elbow. She states that since then, she has had a headache on both of her temples across her forehead. She notes she does not usually have any headaches or issues with her sinuses. She denies any other recent concerns, such as vision changes, numbness, tingling, unilateral weakness, vertigo, balance issues, chest pain, shortness of breath, palpitations, abdominal pain, nausea, vomiting, changes bowel movements, rashes, or swelling. Related Data Home Medications Medication Instructions Recorded Confirmed aspirin 81 mg tablet,delayed 81 mg PO DAILY Heart Disease 12/27/17 10/16/22 release (Adult Low Dose Aspirin) atorvastatin 20 mg tablet 20 mg PO DAILY High Cholesterol 12/27/17 10/16/22 days #30 tabs bisoprolol 5 1 tab PO DAILY Heart Rhythm 12/27/17 10/16/22 mg-hydrochlorothiazide 6.25 mg days #30 tabs tablet citalopram 20 mg tablet 20 mg PO DAILY Mood 30 days #30 12/27/17 10/16/22 tabs metformin 500 mg tablet 500 mg PO BID Diabetes 30 days #60 12/27/17 10/16/22 tabs furosemide 20 mg tablet 20 mg PO DAILY Swelling 10/16/22 10/16/22 losartan 25 mg tablet 25 mg PO DAILY High Blood Pressure 10/16/22 10/16/22 medroxyprogesterone 5 mg tablet 5 mg PO DAILY Supplement 10/16/22 10/16/22 warfarin 2.5 mg tablet See Rx Instructions .Route 10/16/22 10/16/22 .COMPLEX Blood Thinner Allergies Allergy/AdvReac Type Severity Reaction Status Date / Time etodolac Allergy Intermediate '
--- NOTE | 2023-03-02 14:36 | XR_ITS ---
FINAL REPORT CLINICAL HISTORY: fall, pain COMPARISON: None FINDINGS: AP, oblique, and lateral views of the left elbow were obtained. There is no prior exam for comparison. There is no acute fracture or dislocation. Joint space is preserved. There is no joint effusion or other soft tissue abnormality. IMPRESSION: No acute osseous abnormality of the left elbow. Reviewed, Interpreted and Dictated by Lucho Moreno III, MD Transcribed by Marian Almazan Authenticated and [facility]
--- NOTE | 2023-03-02 14:36 | XR_ITS ---
FINAL REPORT CLINICAL HISTORY: fall COMPARISON: 02/09/2018 FINDINGS: SINGLE VIEW PELVIS: A single view of the pelvis was obtained. A right total hip prosthesis remains present. Mild degenerative changes present in the left hip. There is contrast present in the bladder. Degenerative changes are present in the lower lumbar spine. There is no acute fracture or dislocation. Vizualized joint spaces are normally aligned. Soft tissues are unremarkable. IMPRESSION: Prior right hip arthroplasty. Mild and lumbar spine. Reviewed, Interpreted and Dictated by Lucho Moreno III, MD Transcribed by Marian Almazan Authenticated and . [facility]
[2023-03-02 14:49] LABS: VBG Base Excess 0.2 mmol/L (-2.4-2.3); VBG HCO3 25.6 mmol/L (23-30); VBG Oxygen Saturation 94.3 % (50-70); VBG PH 7.36 mmol/L (7.31-7.41); VBG PO2 70.2 mmol/L (28-40)
[2023-03-02 14:56] LABS: Basophils % 0.5 % (0.1-2.0); Eosinophils # 0.2 K/mm3 (0.0-0.4); Eosinophils % 3.4 % (0.1-12.0); Hemoglobin 13.3 g/dL (12.2-16.2); Lymphocytes # 1.1 K/mm3 (0.7-4.5); Lymphocytes % 19.1 % (10-50); Mean Corpuscular HGB Conc 33.3 g/dL (31.8-35.4); Mean Corpuscular Volume 98.9 fl (81-99); Mean Platelet Volume 7.5 fl (7.4-10.4); Monocytes # 0.4 K/mm3 (0.1-1.0); Monocytes % 6.7 % (1.7-9.3); Neutrophils # 3.8 K/mm3 (1.8-7.8); Neutrophils % 70.2 % (37.0-80.0); Platelet Count 278 K/mm3 (142-424); Red Blood Count 4.05 M/mm3 (4.20-5.40); Red Cell Distribution Width 13.2 % (11.5-17.5); White Blood Count 5.5 K/mm3 (4.8-10.8)
--- NOTE | 2023-03-02 15:00 | PC.NURSE ---
PT TO CT
[2023-03-02 15:17] LABS: Chloride 100 mmol/L (98-107); Potassium 3.7 mmoL/L (3.5-5.1); Sodium 135 mmol/L (136-145)
[2023-03-02 15:20] LABS: Alanine Aminotransferase 31 U/L (12-78); Albumin Level 3.9 g/dl (3.5-5.0); Albumin/Globulin Ratio 1.4 (1.1-1.8); Alkaline Phosphatase 89 U/L (38-126); Anion Gap 10.7 mEq/L (5-15); Aspartate Amino Transferase 45 U/L (14-36); Bilirubin,Total 0.3 mg/dl (0.2-1.3); Blood Urea Nitrogen 14 mg/dl (7-17); Calcium 8.7 mg/dl (8.4-10.2); Carbon Dioxide 28 mmol/L (22.0-30.0); Creatinine Clearance Estimated 56 mL/min (50-200); Estimated Glomerular Filt Rate 68 ml/min (>60); GFR (African American) 82 ML/MIN (>60); Globulin 2.8 g/dL (1.3-3.2); Glucose 174 mg/dl (74-100); Total Protein,Serum 6.7 g/dl (6.3-8.2)
[2023-03-02 15:21] LABS: INR 1.94 (0.9-1.1); Prothrombin Time 20.1 seconds (10.1-12.5)
[2023-03-02 15:34] LABS: Troponin I < 0.01 ng/ml (0.00-0.034)
[2023-03-02 15:38] LABS: T4 (Thyroxine) 9.1 ug/dl (5.53-11.0)
[2023-03-02 15:51] LABS: Thyroid Stimulating Hormone 1.39 uIU/mL (0.465-4.68)
[2023-03-02 16:12] LABS: Microscopic, Urine URINE MICROSCOPIC (MICROSCOPIC)
[2023-03-02 16:38] LABS: Appearance,Urine CLEAR (Clear); Bilirubin,Urine Negative (Negative); Blood, Urine Negative (Negative); Color,Urine YELLOW (Yellow); Glucose,Urine (UA) Negative (Negative); Ketones,Urine Negative (Negative); Leukocyte Esterase,Urine Negative (Negative); Nitrate,Urine Negative (Negative); PH,Urine 5.5 (5.0-8.5); Protein,Urine Negative (Negative); Specific Gravity, Urine <= 1.005 (1.005-1.030); Urobilinogen,Urine 0.2 EU/dl (0.2)
[2023-03-02 16:39] VITALS: BP 125/70
[2023-03-02 17:00] VITALS: BP 141/70; PULSE 66; O2SAT 97
[2023-03-02 17:04] LABS: Squamous Epithelial Cell,Urine Occasional #/hpf (0-5)
--- NOTE | 2023-03-02 17:10 | PC.NURSE ---
PT ARRIVED BACK TO ROOM FROM XRAY
[2023-03-02 17:30] VITALS: BP 141/70; PULSE 87; RESP 20; TEMP 36.8; O2SAT 97
== END 2023-03-02 17:31 | disposition home or self-care (01) ==
PROVIDERS: Emergency Medicine; Emergency Provider Emergency Medicine; PCP Internal Medicine
DX: R55 Syncope and collapse (principal); R41.0 Disorientation, unspecified; R51.9 Headache, unspecified; M25.522 Pain in left elbow; I65.29 Occlusion and stenosis of unspecified carotid artery; I10 Essential (primary) hypertension; E78.5 Hyperlipidemia, unspecified; E11.9 Type 2 diabetes mellitus without complications; Z86.711 Personal history of pulmonary embolism; Z79.01 Long term (current) use of anticoagulants; Z79.84 Long term (current) use of oral hypoglycemic drugs
CPT/HCPCS: 70450; 70496; 70498; 71045; 72125; 72170; 73080; 80053; 81001; 82803; 84436; 84443; 84484; 85025; 85610; 85730; 93005; 99285; Q9967

== ENCOUNTER 2023-03-10 13:53 | Outpatient (CLI) | payer MEDICARE, SELFPAY ==
[2023-03-10 16:22] LABS: PHA INR Fingerstick 1.9 (0.9-1.1)
== END 2023-03-10 16:24 ==
LOC: ACC 13:54
PROVIDERS: PCP Internal Medicine; Visit Provider Internal Medicine
DX: Z79.01 Long term (current) use of anticoagulants (principal); Z51.81 Encounter for therapeutic drug level monitoring; I48.91 Unspecified atrial fibrillation
CPT/HCPCS: 85610; 99211; G0463

== ENCOUNTER 2023-04-21 13:59 | Outpatient (CLI) | payer MEDICARE, SELFPAY ==
[2023-04-21 14:44] LABS: PHA INR Fingerstick 2.2 (0.9-1.1)
== END 2023-04-21 14:53 ==
LOC: ACC 14:01
PROVIDERS: PCP Internal Medicine; Visit Provider Internal Medicine
DX: Z79.01 Long term (current) use of anticoagulants (principal); Z51.81 Encounter for therapeutic drug level monitoring; I48.91 Unspecified atrial fibrillation
CPT/HCPCS: 85610; 99211; G0463

== ENCOUNTER 2023-06-09 14:01 | Outpatient (CLI) | payer MEDICARE, SELFPAY ==
[2023-06-09 14:28] LABS: PHA INR Fingerstick 2.6 (0.9-1.1)
== END 2023-06-09 14:29 ==
LOC: ACC 14:01
PROVIDERS: PCP Internal Medicine; Visit Provider Internal Medicine
DX: Z79.01 Long term (current) use of anticoagulants (principal); I48.21 Permanent atrial fibrillation; Z51.81 Encounter for therapeutic drug level monitoring
CPT/HCPCS: 85610; 99211; G0463

== ENCOUNTER 2023-06-30 15:02 | Outpatient (CLI) | payer MEDICARE, SELFPAY ==
--- NOTE | 2023-06-30 15:16 | XR_ITS ---
FINAL REPORT CLINICAL HISTORY: RT WRIST PAIN COMPARISON: None FINDINGS: RIGHT WRIST Three views demonstrate no acute fracture or dislocation. There is severe degenerative change at the first CMC joint. There are mild and moderate degenerative changes elsewhere in the hand and wrist. The visualized joint spaces are normally aligned. The soft tissues are unremarkable. IMPRESSION: Degenerative changes without acute bony abnormality. Reviewed, Interpreted and Dictated by Lucho Moreno III, MD Transcribed by Bhavna Kim Authenticated and [facility]
== END 2023-06-30 23:59 ==
LOC: RAD 15:04
PROVIDERS: PCP Internal Medicine; Visit Provider Internal Medicine
DX: M25.531 Pain in right wrist (principal)
CPT/HCPCS: 73110

== ENCOUNTER 2023-07-22 13:55 | Outpatient (CLI) | payer MEDICARE, SELFPAY ==
[2023-07-22 14:43] LABS: PHA INR Fingerstick 2.8 (0.9-1.1)
== END 2023-07-22 14:45 ==
LOC: ACC 13:56
PROVIDERS: PCP Internal Medicine; Visit Provider Internal Medicine
DX: Z51.81 Encounter for therapeutic drug level monitoring (principal); Z79.01 Long term (current) use of anticoagulants; I48.91 Unspecified atrial fibrillation
CPT/HCPCS: 85610; 99211; G0463

== ENCOUNTER 2023-08-27 16:51 | Outpatient (CLI) | payer MEDICARE, SELFPAY ==
[2023-08-27 17:48] LABS: Alanine Aminotransferase 32 U/L (12-78); Albumin Level 3.9 g/dl (3.5-5.0); Albumin/Globulin Ratio 1.6 (1.1-1.8); Alkaline Phosphatase 81 U/L (38-126); Anion Gap 14.7 mEq/L (5-15); Aspartate Amino Transferase 37 U/L (14-36); Bilirubin,Total 0.4 mg/dl (0.2-1.3); Blood Urea Nitrogen 21 mg/dl (7-17); Calcium 9.8 mg/dl (8.4-10.2); Carbon Dioxide 30 mmol/L (22.0-30.0); Chloride 98 mmol/L (98-107); Chol/HDL Ratio 3.6 (1-3.5); Cholesterol 174 mg/dl (140-200); Estimated Glomerular Filt Rate 59 ml/min (>60); GFR (African American) 71 ML/MIN (>60); Globulin 2.5 g/dL (1.3-3.2); Glucose 104 mg/dl (74-100); HDL Cholesterol 49 mg/dl (40-60); Potassium 4.7 mmoL/L (3.5-5.1); Sodium 138 mmol/L (136-145); Total Protein,Serum 6.4 g/dl (6.3-8.2); Triglycerides 206 mg/dl (30-150); VLDL Cholesterol 41 mg/dL (0-40)
[2023-08-27 18:11] LABS: Hemoglobin A1C 6.1 % (4.0-6.0)
== END 2023-08-27 23:59 | disposition home or self-care (01) ==
LOC: LAB.DROPOF 16:53
PROVIDERS: PCP Internal Medicine; Visit Provider Internal Medicine
DX: E11.59 Type 2 diabetes mellitus with other circulatory complications (principal); I73.9 Peripheral vascular disease, unspecified; I10 Essential (primary) hypertension; M17.0 Bilateral primary osteoarthritis of knee; Z68.33 Body mass index [BMI] 33.0-33.9, adult; Z79.84 Long term (current) use of oral hypoglycemic drugs
CPT/HCPCS: 80053; 80061; 83036

== ENCOUNTER 2023-08-30 16:47 | Outpatient (CLI) | payer MEDICARE, SELFPAY ==
[2023-08-30 23:59] LABS: Creatinine,Urine Random 61 mg/dL (Not Estab.); Microalbumin < 6.000 mg/L (0-16.7)
== END 2023-08-30 23:59 | disposition home or self-care (01) ==
LOC: LAB.DROPOF 16:48
PROVIDERS: PCP Internal Medicine; Visit Provider Internal Medicine
DX: E11.59 Type 2 diabetes mellitus with other circulatory complications (principal); I73.9 Peripheral vascular disease, unspecified; I10 Essential (primary) hypertension; Z79.84 Long term (current) use of oral hypoglycemic drugs
CPT/HCPCS: 82043; 82570

== ENCOUNTER 2023-09-01 13:27 | Outpatient (CLI) | payer MEDICARE, SELFPAY ==
[2023-09-01 13:46] LABS: PHA INR Fingerstick 1.9 (0.9-1.1)
== END 2023-09-01 13:48 ==
LOC: ACC 13:28
PROVIDERS: PCP Internal Medicine; Visit Provider Internal Medicine
DX: Z79.01 Long term (current) use of anticoagulants (principal); Z51.81 Encounter for therapeutic drug level monitoring; I48.0 Paroxysmal atrial fibrillation
CPT/HCPCS: 85610; 99211; G0463

== ENCOUNTER 2023-10-13 13:27 | Outpatient (CLI) | payer MEDICARE, SELFPAY ==
[2023-10-13 14:08] LABS: PHA INR Fingerstick 2.6 (0.9-1.1)
== END 2023-10-13 14:09 ==
LOC: ACC 13:29
PROVIDERS: PCP Internal Medicine; Visit Provider Internal Medicine
DX: Z79.01 Long term (current) use of anticoagulants (principal); I48.91 Unspecified atrial fibrillation
CPT/HCPCS: 85610; 99211; G0463

== ENCOUNTER 2023-11-24 13:29 | Outpatient (CLI) | payer MEDICARE, SELFPAY | END 2023-11-24 16:03 | LOC: ACC 13:30 | PROVIDERS: PCP Internal Medicine; Visit Provider Internal Medicine | DX: Z79.01 Long term (current) use of anticoagulants (principal); I48.91 Unspecified atrial fibrillation | CPT/HCPCS: 85610; 99211; G0463 ==

== ENCOUNTER 2023-12-22 13:30 | Outpatient (CLI) | payer MEDICARE, SELFPAY | END 2023-12-22 14:22 | LOC: ACC 13:31 | PROVIDERS: PCP Internal Medicine; Visit Provider Internal Medicine | DX: Z79.01 Long term (current) use of anticoagulants (principal); Z86.718 Personal history of other venous thrombosis and embolism | CPT/HCPCS: 85610; 99211; G0463 ==

== ENCOUNTER 2024-01-19 13:24 | Outpatient (CLI) | payer MEDICARE, SELFPAY ==
[2024-01-19 14:33] LABS: PHA INR Fingerstick 2.8 (0.9-1.1)
== END 2024-01-19 14:48 ==
LOC: ACC 13:25
PROVIDERS: PCP Internal Medicine; Visit Provider Internal Medicine
DX: Z79.01 Long term (current) use of anticoagulants (principal); I48.91 Unspecified atrial fibrillation
CPT/HCPCS: 85610; 99211; G0463

== ENCOUNTER 2024-03-01 13:26 | Outpatient (CLI) | payer MEDICARE, SELFPAY ==
[2024-03-01 14:55] LABS: PHA INR Fingerstick 2.9 (0.9-1.1)
== END 2024-03-01 23:59 | disposition home or self-care (01) ==
LOC: ACC 13:27
PROVIDERS: PCP Internal Medicine; Visit Provider Internal Medicine
DX: Z79.01 Long term (current) use of anticoagulants (principal); I48.91 Unspecified atrial fibrillation
CPT/HCPCS: 85610; 99211; G0463

== ENCOUNTER 2024-03-20 12:59 | Outpatient (CLI) | payer MEDICARE, SELFPAY ==
--- NOTE | 2024-03-20 13:22 | US_ITS ---
FINAL REPORT CLINICAL HISTORY: new complaints of thyroid issues COMPARISON: None FINDINGS: Sonographic images of the thyroid gland were obtained. The right thyroid lobe measures 49 mm. in length. The left thyroid lobe measures 48 mm. in length. The thyroid isthmus measures 4 mm. The echogenicity is normal. There are multiple small nodules noted. There is a nodule on the right that measures 10 x 6 x 9 mm and is solid, isoechoic, TI-RADS 3. There is a nodule on the left that measures 7 x 5 x 6 mm and is solid, isoechoic, TI-RADS 3. IMPRESSION: Small bilateral thyroid nodules. No specific follow-up recommended. Reviewed, Interpreted and Dictated by Lucho Moreno III, MD Transcribed by Linda Ledesma Authenticated and [facility]
[2024-03-20 15:12] LABS: PHA INR Fingerstick 2.1 (0.9-1.1)
[2024-03-20 17:15] LABS: Free T4 (Free Thyroxine) 1.01 ng/dl (0.78-2.19)
[2024-03-20 17:29] LABS: Thyroid Stimulating Hormone 2.88 uIU/mL (0.465-4.68)
[2024-03-21 14:13] LABS: Thyroid Peroxidase Antibodies <9 IU/mL (0-34)
== END 2024-03-20 15:14 ==
LOC: ACC 13:00
PROVIDERS: PCP Internal Medicine; Visit Provider Nurse Practitioner
DX: Z86.39 Personal history of other endocrine, nutritional and metabolic disease (principal); Z79.01 Long term (current) use of anticoagulants; E06.3 Autoimmune thyroiditis; I48.91 Unspecified atrial fibrillation
CPT/HCPCS: 36415; 76536; 84439; 84443; 85610; 86376; 99211; G0463

== ENCOUNTER 2024-04-28 13:40 | Outpatient (CLI) | payer MEDICARE, SELFPAY ==
[2024-04-28 14:48] LABS: PHA INR Fingerstick 2.5 (0.9-1.1)
== END 2024-04-28 14:50 ==
LOC: ACC 13:41
PROVIDERS: PCP Internal Medicine; Visit Provider Internal Medicine
DX: Z79.01 Long term (current) use of anticoagulants (principal); Z86.718 Personal history of other venous thrombosis and embolism
CPT/HCPCS: 85610; 99211; G0463

== ENCOUNTER 2024-05-29 13:15 | Outpatient (CLI) | payer MEDICARE, SELFPAY ==
[2024-05-29 15:28] LABS: PHA INR Fingerstick 2.7 (0.9-1.1)
--- NOTE | 2024-05-29 15:30 | XR_ITS ---
FINAL REPORT CLINICAL HISTORY: Fall with pain and bruising FINDINGS: 2 views of the elbow were obtained. There is no acute fracture or dislocation. There is degenerative joint disease. There is no joint effusion. IMPRESSION: No acute fracture. Reviewed, Interpreted and Dictated by Coni Mathews MD Transcribed by Kristy Menchaca Authenticated and [facility]
--- NOTE | 2024-05-29 15:30 | XR_ITS ---
FINAL REPORT CLINICAL HISTORY: Fall, right hip pain FINDINGS: AP and frog leg views of the right hip were obtained. There are changes from right hip arthroplasty. The hardware is intact. There is no acute osseous abnormality of the pelvis or right hip. Degenerative joint disease is seen in the left hip. There is no acute fracture or dislocation. IMPRESSION: Postoperative and degenerative changes with no acute osseous abnormality of the right hip. Reviewed, Interpreted and Dictated by Coni Mathews MD Transcribed by Kristy Menchaca Authenticated and [facility]
--- NOTE | 2024-05-29 15:30 | XR_ITS ---
FINAL REPORT CLINICAL HISTORY: Fall, pain and bruising right lower leg FINDINGS: AP and lateral views of the right tibia and fibula were obtained. There is no prior exam for comparison. There is no acute fracture of the right tibia or fibula. There is soft tissue edema along the lateral aspect of the proximal leg. A subcutaneous hematoma is not excluded. IMPRESSION: Soft tissue edema along the lateral aspect of the proximal leg. A subcutaneous hematoma is not excluded. No acute osseous abnormality of the right tibia or fibula. Reviewed, Interpreted and Dictated by Coni Mathews MD Transcribed by Kristy Menchaca Authenticated and [facility]
--- NOTE | 2024-05-29 15:30 | XR_ITS ---
FINAL REPORT CLINICAL HISTORY: Pain and bruising right knee after a fall FINDINGS: AP and lateral views of the right knee were obtained. There is no prior exam for comparison. There is no acute fracture or dislocation. There is mild degenerative joint disease with chondrocalcinosis. There is no joint effusion. IMPRESSION: Degenerative changes with no acute osseous abnormality of the right knee. Reviewed, Interpreted and Dictated by Coni Mathews MD Transcribed by Kristy Menchaca Authenticated and [facility]
--- NOTE | 2024-05-29 15:30 | XR_ITS ---
FINAL REPORT CLINICAL HISTORY: Fall, pain and bruising right shoulder FINDINGS: 3 views of the right shoulder were obtained. There is no fracture or dislocation. There is degenerative joint disease. Calcification in the region of the rotator cuff is consistent with calcific tendinitis. IMPRESSION: No acute osseous abnormality of the right shoulder. Degenerative joint disease. Calcific tendinitis. Reviewed, Interpreted and Dictated by Coni Mathews MD Transcribed by Kristy Menchaca Authenticated and [facility]
== END 2024-05-29 15:31 ==
LOC: ACC 13:15 → RAD 15:26
PROVIDERS: PCP Internal Medicine; Visit Provider Internal Medicine
DX: M25.551 Pain in right hip (principal); S40.011A Contusion of right shoulder, initial encounter; S80.01XA Contusion of right knee, initial encounter; S80.11XA Contusion of right lower leg, initial encounter; S50.01XA Contusion of right elbow, initial encounter
CPT/HCPCS: 73030; 73070; 73502; 73560; 73590; 85610; 99211; G0463

== ENCOUNTER 2024-06-06 18:36 | Emergency (ER) | payer MEDICARE, SELFPAY ==
--- NOTE | 2024-06-06 18:42 | CT_ITS ---
PROCEDURE INFORMATION: Exam: CTA Abdominal Aorta and Bilateral Lower Extremities (Run-off) With Contrast Exam date and time: 06/06/2024 8:24 PM Age: 88 years old Clinical indication: Injury or trauma; Other: Injury to R leg with large expanding hematoma; Blunt trauma TECHNIQUE: Imaging protocol: Computed tomographic angiography of the of the abdominal aorta, pelvis and bilateral lower extremities with contrast. 3D rendering (Not supervised by radiologist): MIP and/or 3D reconstructed images were created by the technologist. Radiation optimization: All CT scans at this facility use at least one of these dose optimization techniques: automated exposure control; mA and/or kV adjustment per patient size (includes targeted exams where dose is matched to clinical indication); or iterative reconstruction. Contrast material: ISO 370; Contrast volume: 120 ml; Contrast route: INTRAVENOUS (IV); COMPARISON: CT ABDOMEN PELVIS WO CON 12/27/2020 9:09 AM FINDINGS: Aorta: Moderate mixed calcific and noncalcified atherosclerotic disease of the infrarenal abdominal aorta without aneurysmal dilatation or dissection. Celiac trunk and mesenteric arteries: No occlusion or significant stenosis. Renal arteries: No occlusion or significant stenosis. Right iliac arteries: No occlusion or significant stenosis. Right femoral/popliteal arteries: Moderate mixed calcific and noncalcified atherosclerotic disease of the right superficial femoral artery resulting in mild stenosis. Right infrapopliteal arteries: Right infrapopliteal arteries are pacified to the level of the tibial plateau, and lose contrast opacification could be related to stenosis. Left iliac arteries: No occlusion or significant stenosis. Left femoral/popliteal arteries: Moderate mixed calcific and noncalcified atherosclerotic disease of the distal left superficial femoral artery resulting in mild stenosis. Left infrapopliteal arteries: Left infrapopliteal arteries are opacified to the distal tibial metaphysis, and lose contrast opacification could be related to severe stenosis versus occlusion. Lungs: Dependent bilateral lung base opacities favor atelectasis. Liver: No mass. Gallbladder and biliary ducts: Unremarkable. No calcified stones. No ductal dilation. Pancreas: Unremarkable. No mass. No ductal dilation. Spleen: Normal. No splenomegaly. Adrenal glands: Normal. No mass. Kidneys and ureters: Right renal Bosniak 1 cystic lesion that is homogeneous and fluid density (-9-20 HU), no septations or calcifications, having cabrera smooth and thin. Measurement is 5.7 cm. No follow-up recommended. Left renal Bosniak 1 cystic lesion that is homogeneous and fluid density (-9-20 HU), no septations or calcifications, having cabrera smooth and thin. Measurement is 1.7 cm. No follow-up recommended. Stomach and bowel: Moderate size hiatal hernia with gastric cardia located at the inferior mediastinum. Diverticula are scattered throughout the colon without inflammatory changes. Appendix: No evidence of appendicitis. Urinary bladder: Unremarkable. No mass. Reproductive: Unremarkable as visualized. Intraperitoneal space: Unremarkable. No free air. No significant fluid collection. Lymph nodes: No lymphadenopathy. Bones/joints: Right hip arthroplasty with metal artifact that obscures evaluation of the lower pelvis. Soft tissues: Moderate soft tissue swelling of the left foot and ankle. Right lower leg anterolateral hyperattenuating collection measuring 5.7 x 3.2 x 7.7 cm with a small blush of contrast at the anterior margin which may represent source of hematoma (image 349 of series 5). Other findings: Moderate calcific atherosclerotic disease involves the iliac arteries without aneurysmal dilatation. IMPRESSION: 1. Right lower leg anterolateral hyperattenuating collection measuring 5.7 x 3.2 x 7.7 cm with a small blush of contrast at the anterior margin which may represent source of hematoma (image 349 of series 5). 2. Moderate mixed calcific and noncalcified atherosclerotic disease of the infrarenal abdominal aorta without aneurysmal dilatation or dissection. 3. Moderate mixed calcific and noncalcified atherosclerotic disease of the right superficial femoral artery resulting in mild stenosis. 4. Right infrapopliteal arteries are pacified to the level of the tibial plateau, and lose contrast opacification could be related to stenosis. 5. Left infrapopliteal arteries are opacified to the distal tibial metaphysis, and lose contrast opacification could be related to severe stenosis versus occlusion. 6. Moderate soft tissue swelling of the left foot and ankle.
[2024-06-06 19:01] VITALS: BP 148/60; PULSE 76; O2SAT 93
--- NOTE | 2024-06-06 19:12 | HMH.EDGENADL ---
Discharge Plan Disposition Patient Disposition: Xfer Short-Term Hosp Chief Complaint: Extremity Injury, Lower Prescriptions Prescriptions: No Action furosemide 20 mg tablet 20 mg PO NEEDED PRN (Reason: Fluid) warfarin 2.5 mg tablet 3.75 mg PO SUTUTHSA Rx Instructions: 2.5 MG ON WED/WED/WED, 3.75 MG ON WED/WED/WED/WED metformin 500 mg tablet 500 mg PO BIDWMEAL Rx Instructions: TAKE 1 TABLET TWICE DAILY WITH MEALS atorvastatin 20 mg tablet 20 mg PO HS Rx Instructions: TAKE 1 TABLET AT BEDTIME bisoprolol-hydrochlorothiazide 5-6.25 mg tablet 1 tab PO DAILY Rx Instructions: TAKE 1 TABLET EVERY DAY warfarin 2.5 mg tablet 2.5 mg PO MOWE Rx Instructions: 2.5 MG ON WED/WED/WED, 3.75 MG ON WED/WED/WED/WED citalopram 20 mg tablet 20 mg PO DAILY Rx Instructions: TAKE 1 TABLET EVERY DAY losartan 25 mg tablet 25 mg PO DAILY Rx Instructions: TAKE 1 TABLET EVERY DAY FOR BLOOD PRESSURE Referrals Follow up/Referrals: Per Yeager MD [Primary Care Provider] - See instructions Clinical Impressions Clinical Impression: Hematoma of right lower leg, Extravasation of intravenous contrast medium, Elevated lactic acid level, Elevated CK Print Language Print Language: Kiswahili Discharge ED Provider: Janessa Mahoney General Adult HPI General Chief complaint: Extremity Injury, Lower Stated complaint: leg pain Time Seen by Provider: 06/06/24 18:42 History of Present Illness HPI narrative: This patient is an 88-year-old female with a history of PE on Coumadin, Dina thyroiditis, hypertension, hyperlipidemia, and type 2 diabetes presenting to the emergency department for evaluation with concern for right lower leg pain. Patient had a fall 2 weeks ago and had significant bruising to her right lower extremity. She is evaluated by her primary care provider on 05/29/2024 for this and had multiple x-rays done of the right lower extremity showing no fracture. She states that since then, the pain and swelling have worsened, especially in the lateral aspect of her right leg. She is still ambulatory and able to bear weight. No numbness, tingling, or other concerns. Related Data Home Medications ?Medication ?Instructions ?Recorded ?Confirmed atorvastatin 20 mg tablet 20 mg PO HS 04/28/24 06/06/24 bisoprolol 5 1 tab PO DAILY 04/28/24 06/06/24 mg-hydrochlorothiazide 6.25 mg tablet citalopram 20 mg tablet 20 mg PO DAILY 04/28/24 06/06/24 losartan 25 mg tablet 25 mg PO DAILY 04/28/24 06/06/24 metformin 500 mg tablet 500 mg PO BIDWMEAL 04/28/24 06/06/24 warfarin 2.5 mg tablet 2.5 mg PO MOWEFR Blood Thinner 04/28/24 06/06/24 warfarin 2.5 mg tablet 3.75 mg PO SUTUTHSA 04/28/24 06/06/24 furosemide 20 mg tablet 20 mg PO NEEDED PRN Fluid 06/06/24 06/06/24 Allergies Allergy/AdvReac Type Severity Reaction Status Date / Time etodolac Allergy Intermediate 'KIDNEY Verified 05/29/24 15:03 PROBLEMS' Penicillins Allergy Intermediate I-RASH Verified 05/29/24 15:03 cephalexin (From Keflex) Allergy Unknown UNKNOWN Verified 05/29/24 15:03 HMG-CoA Reductase Inhibitors Allergy Intermediate ELEVATED Uncoded 03/30/24 13:28 LIVER ENZYMES [facility] Disclaimer: The information contained in this section may have been updated after the patient was seen, as this information can be updated by other users. Medical History Multiple thyroid nodules Thyromegaly Dysphagia History of Dina thyroiditis Depression Pulmonary embolism Diabetes Surgical History History of cataract surgery History of right hip replacement Status post carotid surgery Social History Smoking Status: Never smoker alcohol intake: never substance use type: denies use current occupational status: retired Travel in the last 8 weeks: None Have you lived/traveled outside [place] in past 30 days?: No Contact w/someone who lives/traveled outside US past 30 days?: No Exposure to someone with infectious disease in past 14 days?: No Do you have a fever (greater than 100.4 F or 38 C)?: No Have you tested positive for COVID-19: No Exposed to someone with COVID-19 in past 14 days?: No Do you have a sore throat?: No Do you have a cough?: No Do you have any weakness?: No Do you have any diarrhea?: No Are you experiencing any unusual bleeding?: No Do you have any muscle aches/pain?: No Do you have any abdominal pain?: No Are you experiencing loss of taste or smell?: No Other Medical History Have you received the Flu Vaccine for this season: Yes Have you received the Pneumonia Vaccine: Yes ROS Obtained: Yes All systems reviewed & no additional complaints except as documented Physical Exam General General appearance: alert and in no apparent distress Head Head exam: atraumatic and normocephalic Eye Eye exam: Present normal appearance, PERRL and EOMI ENT ENT exam: Present normal exam, normal oropharynx, mucous membranes moist and normal external ear exam Neck Neck exam: Present normal inspection, full ROM and trachea midline; Absent tenderness Chest Chest inspection: Present normal inspection and symmetric chest wall rise; Absent tenderness Respiratory Respiratory exam: Present normal lung sounds bilaterally; Absent respiratory distress, wheezes, stridor or accessory muscle use Cardiovascular Cardiovascular exam: Present regular rate and normal rhythm Abdominal Exam Abdominal exam: Present soft; Absent distention, tenderness or guarding Extremities Exam Extremities exam: Present tenderness, normal capillary refill and edema Expanded Lower Extremity Exam Right: Leg image: 1. Very large, firm hematoma. Significant bruising all the way up and down the RLE, especially about the lateral R lower leg. Pain in the lateral aspect of right lower leg with passive ROM of the ankle. Intact distal pulses, intact sensation distally. Normal capillary refill. Back Exam Back exam: Present normal inspection and full ROM; Absent tenderness Neurological Exam Neurological exam: Present alert, oriented X3, CN II-XII intact and normal gait; Absent motor sensory deficit Psychiatric Psychiatric exam: Present normal affect and normal mood Skin Skin exam: Present warm and dry Medical Decision Making Medical Records Medical records reviewed: Yes I reviewed the patient's medical records. Screening: Per USPSTF and CDC recommendations, given the prevalence of disease in our region, it is our hospital?s policy to screen for HIV and viral Hepatitis for all patients aged 18 and over and those with ongoing risk factors. [place] Inquiry Pt receiving controlled substance: No Vital Signs: 06/06/24 19:01 06/06/24 19:15 Temperature 98.5 F Temperature Source Oral Pulse Rate 76 Pulse Rate [Left] 79 Respiratory Rate 16 Blood Pressure 148/60 H Blood Pressure [Right Arm] 148/60 H Blood Pressure Mean [Right Arm] 89 Blood Pressure Source [Right Arm] Automatic Cuff Blood Pressure Position [Right Arm] Sitting 02 Sat by Pulse Oximetry 93 L 99 Oxygen Delivery Method Room Air Room Air Lab Data Lab results reviewed: Yes I reviewed the patient's lab results. Lab Results 06/06/24 19:25: WBC 7.0, RBC 3.95 L, Hgb 12.6, Hct 39.3, MCV 99.5 H, MCH 31.9 H, MCHC 32.1, RDW 13.2, Plt Count 302, MPV 8.7, Neut % (Auto) 66.2, Lymph % (Auto) 18.5, Wilkin % (Auto) 10.7 H, Eos % (Auto) 3.7, Baso % (Auto) 0.6, Neut # (Auto) 4.6, Lymph # (Auto) 1.3, Wilkin # (Auto) 0.8, Eos # (Auto) 0.3, Baso # (Auto) 0.0, ESR 21, PT 26.2 H, INR 2.62 H, APTT 36.5 H, Sodium 137, Potassium 4.3, Chloride 95 L, Carbon Dioxide 33 H, Anion Gap 13.3, BUN 24 H, Creatinine 1.00, Estimated Creat Clear 55, Estimated GFR 52 L, Est GFR ( Amer) 63, Glucose 102 H, Calcium 9.1, Total Bilirubin 0.7, AST 49 H, ALT 42, Alkaline Phosphatase 101, Total Creatine Kinase 294 H, C-Reactive Protein 13.6 H, Total Protein 7.3, Albumin 4.4, Globulin 2.9, Albumin/Globulin Ratio 1.5, HCV Ab BENI w/Rflx PCR Qn Negative, HIV Ag/Ab Combo Qual Negative 06/06/24 19:50: Lactate 2.4 H 06/06/24 19:25 06/06/24 19:25 Orders (Tests/Meds): ED MEDICATIONS Discontinued Medications Generic Name Dose Route Start Last Admin Trade Name Freq PRN Reason Stop Dose Admin Acetaminophen 1,000 mg 06/06/24 18:43 06/06/24 19:35 Acetaminophen 500mg Tab PO 06/06/24 18:44 1,000 mg ONCE ONE Administration Iopamidol 120 ml 06/06/24 20:25 06/06/24 20:26 Iopamidol-370 (76%);100ml Bottle IV 06/06/24 20: 120 ml ONCE ONE Administration Sodium Chloride 50 ml 06/06/24 20:25 06/06/24 20:26 0.9 % Sodium Chloride 50 Ml Vial IV 06/06/24 20:26 50 ml ONCE ONE Administration Sodium Chloride 10 ml 06/06/24 20:25 06/06/24 20:26 Sodium Chloride 0.9% 10ml Syr (Rad Only) IV 06/06/24 20:26 10 ml ONCE ONE Administration ORDERS Category Date Time Status CT angio abdomen/femoral Stat Cat Scan 06/06/24 18:42 Completed CK [Creatine Kinase] Stat Lab 06/06/24 19:25 Completed CRP [C-Reactive Protein] Stat Lab 06/06/24 19:25 Completed Complete Blood Count Auto Diff Stat Lab 06/06/24 19:25 Completed Comprehensive Metabolic Panel Stat Lab 06/06/24 19:25 Completed ESR [Erythrocyte Sedimentation Rate] Stat Lab 06/06/24 19:25 Completed HIV Combo Stat Lab 06/06/24 19:25 Completed Hepatitis C Ab Qual. W/ RFX Stat Lab 06/06/24 19:25 Completed Lactic Acid Stat Lab 06/06/24 19:50 Completed PT INR [Prothrombin Time INR] Stat Lab 06/06/24 19:25 Completed PTT [Activated Partial Thrombo Time] Stat Lab 06/06/24 19:25 Completed Medical Decision Narrative: In summary, this patient is a 88-year-old female presenting to the Emergency Department for evaluation of right lower extremity pain, swelling, bruising that is worsened after a fall 2 weeks ago. She is on Coumadin. Differential diagnoses considered include but are not limited to vascular injury, hematoma, compartment syndrome, occult fracture. Ruling out the most morbid conditions drove assessment. It should be noted patient's history includes PEs on Coumadin, hypertension, hyperlipidemia, diabetes which may or may not be at goal therapy. This complicates all aspects of care by increasing patient's risk for morbidity. I reviewed patient's past medical records and noted PCP evaluation 05/29/2024 for this injury and negative x-rays as detailed in HPI. I noted chronic use of Coumadin for history of PEs. On exam, the patient is lying in bed in no acute distress. She is ambulatory and able to put weight on her lower extremity, but she has significant swelling, bruising, and a very large hematoma on the lateral aspect of her right lower leg just below her knee. She has a tight posterior lateral leg with significant bruising and hematoma, but she is neurovascularly intact distally with no pallor, pulselessness, or paresthesias. Workup included labs including blood counts, coags, and a CTA with runoff of the lower extremities. She was given acetaminophen for symptomatic improvement of pain. I independently interpreted CTA prior to the radiologist read and noted contrast blush into the hematoma of the right lower leg concerning for active bleed. She also has some atherosclerosis of the left lower extremity. Please see their read for final interpretation. Labs were obtained that demonstrated reassuring CBC with normal white blood cell count, normal hemoglobin, normal platelet count. Patient does have elevated CK and lactic acid concerning for tissue strain and possibly developing early compartment syndrome. Again, she does not have pallor, pulselessness, or paresthesias, but these are generally late findings of compartment syndrome. Inflammatory markers are mildly elevated. INR today is 2. Given active contrast extravasation into the right lower leg and concerns for possible developing compartment syndrome or at least risk of developing it, I did call and initiate discussion with [facility] right away to help facilitate transfer for higher level of care with vascular surgery and orthopedics versus trauma surgery. They advise that it would be a long time before they were able to call us back. I offered calling [place], but patient states that she does not really want to go anywhere tonight, especially not as far as [place]. She states she is ready to go home, but I explained risk of going home, including potential loss of limb. As of 2228, still waiting for to call back. On reassessment, patient is resting comfortably. I discussed the case with Dr. Rivera in the transfer center at as well as Dr. Askew with surgery who recommended reversal of warfarin. They understand that it would take me a long time to be able to get PCC/FFP, but I will administer vitamin K. Patient was given 10 units IV. Compressive wrap was applied to the lower extremity at the recommendation. They excepted the patient for transfer to [facility] ED for further evaluation and management given active contrast extravasation noted. EMS transport was arranged, the patient was transferred in stable condition for further evaluation and management. Critical Care Critical Care Time Critical Care Time: Yes Attestation: On 06/06/24, the high probability of a clinically significant, sudden or life threatening deterioration of the following system(s) required my full and direct attention, intervention and personal management. The time I documented below is in addition to time spent performing reported procedures but includes the following listed in this critical care notation. Total Time Total Critical Care Time: 45
[2024-06-06 19:15] VITALS: BP 148/60; PULSE 79; RESP 16; TEMP 36.9; O2SAT 99; BMI 32.3
[2024-06-06 19:34] LABS: Basophils % 0.6 % (0.1-2.0); Eosinophils # 0.3 K/mm3 (0.0-0.4); Eosinophils % 3.7 % (0.1-12.0); Hematocrit 39.3 % (37.0-47.0); Hemoglobin 12.6 g/dL (12.2-16.2); Lymphocytes # 1.3 K/mm3 (0.7-4.5); Lymphocytes % 18.5 % (10-50); Mean Corpuscular HGB Conc 32.1 g/dL (31.8-35.4); Mean Corpuscular Hemoglobin 31.9 pg (27.0-31.2); Mean Corpuscular Volume 99.5 fl (81-99); Mean Platelet Volume 8.7 fl (7.4-10.4); Monocytes # 0.8 K/mm3 (0.1-1.0); Monocytes % 10.7 % (1.7-9.3); Neutrophils # 4.6 K/mm3 (1.8-7.8); Neutrophils % 66.2 % (37.0-80.0); Platelet Count 302 K/mm3 (142-424); Red Blood Count 3.95 M/mm3 (4.20-5.40); Red Cell Distribution Width 13.2 % (11.5-17.5)
[2024-06-06] MEDS: ACETAMINOPHEN 500MG TAB 1000 MG PO (19:35)
[2024-06-06 19:40] LABS: Albumin Level 4.4 g/dl (3.5-5.0); Chloride 95 mmol/L (98-107); Potassium 4.3 mmoL/L (3.5-5.1); Sodium 137 mmol/L (136-145)
[2024-06-06 19:42] LABS: Blood Urea Nitrogen 24 mg/dl (7-17)
[2024-06-06 19:43] LABS: Alanine Aminotransferase 42 U/L (12-78); Albumin/Globulin Ratio 1.5 (1.1-1.8); Alkaline Phosphatase 101 U/L (38-126); Anion Gap 13.3 mEq/L (5-15); Aspartate Amino Transferase 49 U/L (14-36); Bilirubin,Total 0.7 mg/dl (0.2-1.3); Calcium 9.1 mg/dl (8.4-10.2); Carbon Dioxide 33 mmol/L (22.0-30.0); Creatine Kinase 294 U/L (30-135); Creatinine Clearance Estimated 55 mL/min (50-200); Estimated Glomerular Filt Rate 52 ml/min (>60); GFR (African American) 63 ML/MIN (>60); Globulin 2.9 g/dL (1.3-3.2); Glucose 102 mg/dl (74-100); Total Protein,Serum 7.3 g/dl (6.3-8.2)
[2024-06-06 19:49] LABS: C-Reactive Protein 13.6 mg/L (0-4)
[2024-06-06 19:54] VITALS: BP 170/57; PULSE 71; O2SAT 95
[2024-06-06 20:01] VITALS: BP 170/75; PULSE 72; O2SAT 96
--- NOTE | 2024-06-06 20:13 | PC.NURSE ---
Pt to CT scan via stretcher
[2024-06-06 20:15] LABS: Activated Partial Thrombo Time 36.5 seconds (22.5-28.5)
[2024-06-06 20:20] LABS: Erythrocyte Sedimentation Rate 21 mm/hr (0-30)
[2024-06-06 20:20] LABS: Lactic Acid 2.4 mmol/L (0.7-2.1)
[2024-06-06] MEDS: SODIUM CHLORIDE 0.9% 10ML SYR (RAD ONLY) 10 ML IV (20:26)
[2024-06-06] MEDS: IOPAMIDOL-370 (76%);100ML BOTTLE 120 ML IV (20:26)
[2024-06-06] MEDS: 0.9 % SODIUM CHLORIDE 50 ML VIAL IV (20:26)
[2024-06-06 20:28] LABS: INR 2.62 (0.9-1.1); Prothrombin Time 26.2 seconds (9.2-12.1)
--- NOTE | 2024-06-06 20:33 | PC.NURSE ---
pt back to room from CT at this time
[2024-06-06 20:37] LABS: HIV Combo NEGATIVE (Negative)
[2024-06-06 20:45] LABS: Hepatitis C Ab Qual. W/ RFX NEGATIVE (Negative)
--- NOTE | 2024-06-06 21:07 | PC.NURSE ---
pt ambulated with 1 assist to the bathroom
--- NOTE | 2024-06-06 21:18 | PC.NURSE ---
Pt refusing to have BP checked at this time. Stating BP cuff is too tight, and asking to take BP cuff off.
--- NOTE | 2024-06-06 21:39 | PC.NURSE ---
[facility] called regarding transfer request
[2024-06-06 21:41] VITALS: BP 172/77; PULSE 76; O2SAT 97
[2024-06-06] MEDS: PHYTONADIONE 10 MG in 0.9 % SODIUM CHLORIDE 50 ML 100 MG IV (22:48)
[2024-06-06 23:40] VITALS: BP 156/73; PULSE 74; RESP 18; TEMP 36.9; O2SAT 95
== END 2024-06-06 23:43 | disposition short-term general hospital (02) ==
PROVIDERS: Emergency Provider Emergency Medicine; PCP Internal Medicine
DX: R79.89 Other specified abnormal findings of blood chemistry (principal); T80.818A Extravasation of other vesicant agent, initial encounter; S80.11XA Contusion of right lower leg, initial encounter; R22.41 Localized swelling, mass and lump, right lower limb; R74.8 Abnormal levels of other serum enzymes; W19.XXXA Unspecified fall, initial encounter; Y93.9 Activity, unspecified; Y92.9 Unspecified place or not applicable
CPT/HCPCS: 75635; 80053; 82550; 83605; 85025; 85610; 85651; 85730; 86140; 86803; 87389; 96365; 99291; J3430; Q9967

== ENCOUNTER 2024-06-19 12:11 | Emergency (ER) | payer MEDICARE, SELFPAY ==
[2024-06-19 12:17] VITALS: BP 131/71; PULSE 79; O2SAT 97
--- NOTE | 2024-06-19 12:19 | ED_ITS ---
Discharge Plan Disposition Patient Disposition: Home, Self-Care Condition: Good Prescriptions Prescriptions: No Action furosemide 20 mg tablet 20 mg PO NEEDED PRN (Reason: Fluid) warfarin 2.5 mg tablet 3.75 mg PO SUTUTHSA Rx Instructions: 2.5 MG ON WED/WED/WED, 3.75 MG ON WED/WED/WED/SAT metformin 500 mg tablet 500 mg PO BIDWMEAL Rx Instructions: TAKE 1 TABLET TWICE DAILY WITH MEALS atorvastatin 20 mg tablet 20 mg PO HS Rx Instructions: TAKE 1 TABLET AT BEDTIME bisoprolol-hydrochlorothiazide 5-6.25 mg tablet 1 tab PO DAILY Rx Instructions: TAKE 1 TABLET EVERY DAY warfarin 2.5 mg tablet 2.5 mg PO MOWEFR Rx Instructions: 2.5 MG ON WED/WED/WED, 3.75 MG ON WED/WED/WED/SAT citalopram 20 mg tablet 20 mg PO DAILY Rx Instructions: TAKE 1 TABLET EVERY DAY losartan 25 mg tablet 25 mg PO DAILY Rx Instructions: TAKE 1 TABLET EVERY DAY FOR BLOOD PRESSURE Referrals Follow up/Referrals: Per Yeager MD [Primary Care Provider] - See instructions Activity Restrictions/Add. Instructions Additional Instructions/Restrictions: As we discussed, continue Graeme bandage from knee to just before the toes. Please keep your leg elevated is much as possible and avoid prolonged sitting. You may take 2 Tylenol as much is every 6 hours however I do not recommend more than 4 g of Tylenol a day and no more than 3 days in a row otherwise you may take 2 Tylenol every 8 hours safely. If you have any increasing redness increasing pain loss of sensation a cold foot return to the emergency department immediately. Clinical Impressions Clinical Impression: Hematoma of right lower extremity Qualifiers: Encounter type: subsequent encounter Qualified Code(s): S80.11XD - Contusion of right lower leg, subsequent encounter Instructions Patient Instructions: DI for Hematoma (Bruise) Print Language Print Language: Nigerien Discharge ED Provider: Jim Costello Adult HPI <DELANEY Cast - Last Filed: 06/19/24 22:38> General Chief complaint: PAIN Stated complaint: Pain in R leg Time Seen by Provider: 06/19/24 12:19 History of Present Illness HPI narrative: Patient presents for evaluation of pain of her right lower extremity. Patient fell at the end of May and was evaluated in [facility]. Patient was on Coumadin for previous robotic event. She was found to have no fracture but a significant hematoma of the proximal tibia laterally and there was concern for possible compartment syndrome and patient was ultimately transferred to [facility] for further evaluation and care. Patient was observed for period of time and her compartments remain soft and she subsequently was discharged. She was off of her Coumadin but has reinitiated it last week. Patient has had continued pain in the area but no fever chills hemoptysis hematochezia melena nausea vomiting diarrhea. She presents for evaluation of continued pain in the area of the hematoma. Related Data Home Medications ?Medication ?Instructions ?Recorded ?Confirmed atorvastatin 20 mg tablet 20 mg PO HS 04/28/24 06/19/24 bisoprolol 5 1 tab PO DAILY 04/28/24 06/19/24 mg-hydrochlorothiazide 6.25 mg tablet citalopram 20 mg tablet 20 mg PO DAILY 04/28/24 06/19/24 losartan 25 mg tablet 25 mg PO DAILY 04/28/24 06/19/24 metformin 500 mg tablet 500 mg PO BIDWMEAL 04/28/24 06/19/24 warfarin 2.5 mg tablet 2.5 mg PO MOWEFR Blood Thinner 04/28/24 06/19/24 warfarin 2.5 mg tablet 3.75 mg PO SUTUTHSA 04/28/24 06/19/24 furosemide 20 mg tablet 20 mg PO NEEDED PRN Fluid 06/06/24 06/19/24 Allergies Allergy/AdvReac Type Severity Reaction Status Date / Time etodolac Allergy Intermediate 'KIDNEY Verified 06/19/24 12:32 PROBLEMS' Penicillins Allergy Intermediate I-RASH Verified 06/19/24 12:32 cephalexin (From Keflex) Allergy Unknown UNKNOWN Verified 06/19/24 12:32 HMG-CoA Reductase Inhibitors Allergy Intermediate ELEVATED Uncoded 03/30/24 13:28 LIVER ENZYMES [facility] <DELANEY Cast - Last Filed: 06/19/24 22:38> [facility] Disclaimer: The information contained in this section may have been updated after the patient was seen, as this information can be updated by other users. Medical History Multiple thyroid nodules Thyromegaly Dysphagia History of Dina thyroiditis Depression Pulmonary embolism Diabetes Surgical History History of cataract surgery History of right hip replacement Status post carotid surgery Social History Smoking Status: Never smoker alcohol intake: never substance use type: denies use current occupational status: retired Travel in the last 8 weeks: None Have you lived/traveled outside [place] in past 30 days?: No Contact w/someone who lives/traveled outside US past 30 days?: No Exposure to someone with infectious disease in past 14 days?: No Do you have a fever (greater than 100.4 F or 38 C)?: No Have you tested positive for COVID-19: No Exposed to someone with COVID-19 in past 14 days?: No Do you have a sore throat?: No Do you have a cough?: No Do you have any weakness?: No Do you have any diarrhea?: No Are you experiencing any unusual bleeding?: No Do you have any muscle aches/pain?: No Do you have any abdominal pain?: No Are you experiencing loss of taste or smell?: No Other Medical History Have you received the Flu Vaccine for this season: Yes Have you received the Pneumonia Vaccine: Yes <DELANEY Cast - Last Filed: 06/19/24 22:38> ROS Obtained: Yes Systems reviewed as appropriate & no additional complaints except as documented Physical Exam <DELANEY Cast - Last Filed: 06/19/24 22:38> General General appearance: alert and in no apparent distress Respiratory Respiratory exam: Present normal lung sounds bilaterally Cardiovascular Cardiovascular exam: Present regular rate Neurological Exam Neurological exam: Present alert and oriented X3 Medical Decision Making <DELANEY Cast - Last Filed: 06/19/24 22:38> Medical Records Medical records reviewed: Yes I reviewed the patient's medical records. Screening: Per USPSTF and CDC recommendations, given the prevalence of disease in our region, it is our hospital?s policy to screen for HIV and viral Hepatitis for all patients aged 18 and over and those with ongoing risk factors. [place] Inquiry Pt receiving controlled substance: No Vital Signs: 06/19/24 12:17 06/19/24 12:24 06/19/24 12:30 Temperature 98.0 F Temperature Source Oral Pulse Rate 79 78 Pulse Rate [Left Radial] 79 Respiratory Rate 16 Blood Pressure 131/71 109/68 L Blood Pressure [Right Arm] 131/71 Blood Pressure Mean [Right Arm] 91 Blood Pressure Source Blood Pressure Source [Right Arm] Automatic Cuff Blood Pressure Position Blood Pressure Position [Right Arm] Sitting 02 Sat by Pulse Oximetry 97 97 92 L Oxygen Delivery Method Room Air Room Air Room Air 06/19/24 12:55 Temperature 98.0 F Temperature Source Oral Pulse Rate 74 Pulse Rate [Left Radial] Respiratory Rate 16 Blood Pressure 125/68 Blood Pressure [Right Arm] Blood Pressure Mean [Right Arm] Blood Pressure Source Automatic Cuff Blood Pressure Source [Right Arm] Blood Pressure Position Sitting Blood Pressure Position [Right Arm] 02 Sat by Pulse Oximetry Oxygen Delivery Method Room Air Medical Decision Narrative: With no erythema or indurationIn summary patient is a 88-year-old female who presents to the emergency department for evaluation of right lower extremity hematoma and pain. Patient is hemodynamically stable upon arrival, afebrile. Physical exam is remarkable for a very large hematoma at the lateral aspect of her tibia just distal to the knee joint. There is no evidence of erythema and induration skin ulceration. Patient is neurovascular intact distally has full range of motion and palpable DP and PT pulses with no anterior but no posterior calf tenderness. Differential diagnosis includes simple hematoma versus infected hematoma although there are no physical findings suggestive of such currently. Initial workup was considered with labs and imaging however again patient has no red flags and actually shows good resolution with no neurovascular compromise distally thus JACOBSEN deferred. Given this I had a shared decision-making discussion with the patient and reassured her that things appear to be progressing well and that it is will take a fairly long time due to the size of the hematoma for complete resolution. It is approximately 5 x 5 cm but it is in a location that is unlikely to compress venous return. I have instructed and reassured the patient that they are wrapping it correctly from the knee to just proximal to the toes however I have counseled the patient on decreased prolonged sitting and that she should elevate her leg whenever possible. I have discussed with them red flags including increasing redness increasing pain pallor or pulselessness paresthesias are strict red flags to return to the ER. Patient verbalized understanding and agreement and feels comfortable going home with reassurance and close follow-up with PCP. <Jim Costello MD - Last Filed: 06/20/24 14:49> Vital Signs: 06/19/24 12:17 06/19/24 12:24 06/19/24 12:30 Temperature 98.0 F Temperature Source Oral Pulse Rate 79 78 Pulse Rate [Left Radial] 79 Respiratory Rate 16 Blood Pressure 131/71 109/68 L Blood Pressure [Right Arm] 131/71 Blood Pressure Mean [Right Arm] 91 Blood Pressure Source Blood Pressure Source [Right Arm] Automatic Cuff Blood Pressure Position Blood Pressure Position [Right Arm] Sitting 02 Sat by Pulse Oximetry 97 97 92 L Oxygen Delivery Method Room Air Room Air Room Air 06/19/24 12:55 Temperature 98.0 F Temperature Source Oral Pulse Rate 74 Pulse Rate [Left Radial] Respiratory Rate 16 Blood Pressure 125/68 Blood Pressure [Right Arm] Blood Pressure Mean [Right Arm] Blood Pressure Source Automatic Cuff Blood Pressure Source [Right Arm] Blood Pressure Position Sitting Blood Pressure Position [Right Arm] 02 Sat by Pulse Oximetry Oxygen Delivery Method Room Air Medical Decision Narrative: With no erythema or indurationIn summary patient is a 88-year-old female who presents to the emergency department for evaluation of right lower extremity hematoma and pain. Patient is hemodynamically stable upon arrival, afebrile. Physical exam is remarkable for a very large hematoma at the lateral aspect of her tibia just distal to the knee joint. There is no evidence of erythema and induration skin ulceration. Patient is neurovascular intact distally has full range of motion and palpable DP and PT pulses with no anterior but no posterior calf tenderness. Differential diagnosis includes simple hematoma versus infected hematoma although there are no physical findings suggestive of such currently. Initial workup was considered with labs and imaging however again patient has no red flags and actually shows good resolution with no neurovascular compromise distally thus JACOBSEN deferred. Given this I had a shared decision-making discussion with the patient and reassured her that things appear to be progressing well and that it is will take a fairly long time due to the size of the hematoma for complete resolution. It is approximately 5 x 5 cm but it is in a location that is unlikely to compress venous return. I have instructed and reassured the patient that they are wrapping it correctly from the knee to just proximal to the toes however I have counseled the patient on decreased prolonged sitting and that she should elevate her leg whenever possible. I have discussed with them red flags including increasing redness increasing pain pallor or pulselessness paresthesias are strict red flags to return to the ER. Patient verbalized understanding and agreement and feels comfortable going home with reassurance and close follow-up with PCP. I was consulted by the DORIS, and we discussed the complexity of the problems being addressed. I approve the treatment and management plan for this patient's care in the emergency department, thus performing a substantive portion of the medical decision making. Jim Costello MD Critical Care <DELANEY Cast - Last Filed: 06/19/24 22:38> Critical Care Time Critical Care Time: No
[2024-06-19 12:24] VITALS: BP 131/71; PULSE 79; RESP 16; TEMP 36.7; O2SAT 97; BMI 32.3
[2024-06-19 12:30] VITALS: BP 109/68; PULSE 78; O2SAT 92
--- NOTE | 2024-06-19 12:30 | PC.NURSE ---
don at bedside
[2024-06-19 12:55] VITALS: BP 125/68; PULSE 74; RESP 16; TEMP 36.7; O2SAT 93
== END 2024-06-19 13:00 | disposition home or self-care (01) ==
PROVIDERS: Emergency Provider Student in an Organized Health Care Education/Training Program; PCP Internal Medicine
DX: S80.11XD Contusion of right lower leg, subsequent encounter (principal); M79.661 Pain in right lower leg
CPT/HCPCS: 99282

== ENCOUNTER 2024-06-26 13:31 | Outpatient (CLI) | payer MEDICARE, SELFPAY | END 2024-06-26 14:54 | LOC: ACC 13:31 | PROVIDERS: PCP Internal Medicine; Visit Provider Internal Medicine | DX: Z79.01 Long term (current) use of anticoagulants (principal); Z86.718 Personal history of other venous thrombosis and embolism | CPT/HCPCS: 85610; 99211; G0463 ==

== ENCOUNTER 2024-07-31 17:16 | Outpatient (CLI) | payer MEDICARE, SELFPAY ==
[2024-07-31 18:16] LABS: Chloride 100 mmol/L (98-107)
[2024-07-31 18:17] LABS: Potassium 4.7 mmoL/L (3.5-5.1); Sodium 137 mmol/L (136-145)
[2024-07-31 18:19] LABS: Blood Urea Nitrogen 25 mg/dl (7-17); Estimated Glomerular Filt Rate 59 ml/min (>60); GFR (African American) 71 ML/MIN (>60)
[2024-07-31 18:20] LABS: Anion Gap 13.7 mEq/L (5-15); Calcium 9.4 mg/dl (8.4-10.2); Carbon Dioxide 28 mmol/L (22.0-30.0); Chol/HDL Ratio 3.8 (1-3.5); Cholesterol 181 mg/dl (140-200); Glucose 87 mg/dl (74-100); HDL Cholesterol 48 mg/dl (40-60); Triglycerides 251 mg/dl (30-150); VLDL Cholesterol 50 mg/dL (0-40)
[2024-07-31 18:31] LABS: Direct LDL Cholesterol 81.91 mg/dL (100-129)
[2024-07-31 18:47] LABS: Hemoglobin A1C 5.7 % (4.0-6.0)
== END 2024-07-31 23:59 | disposition home or self-care (01) ==
LOC: LAB.DROPOF 17:17
PROVIDERS: PCP Internal Medicine; Visit Provider Internal Medicine
DX: I10 Essential (primary) hypertension (principal); E78.5 Hyperlipidemia, unspecified; E11.59 Type 2 diabetes mellitus with other circulatory complications; Z79.84 Long term (current) use of oral hypoglycemic drugs
CPT/HCPCS: 80048; 80061; 83036

== ENCOUNTER 2024-08-16 14:04 | Outpatient (CLI) | payer MEDICARE, SELFPAY ==
[2024-08-16 15:45] LABS: PHA INR Fingerstick 2.6 (0.9-1.1)
== END 2024-08-16 15:55 ==
LOC: ACC 14:04
PROVIDERS: PCP Internal Medicine; Visit Provider Internal Medicine
DX: Z79.01 Long term (current) use of anticoagulants (principal); I48.91 Unspecified atrial fibrillation
CPT/HCPCS: 85610; 99211; G0463